=== PATIENT | male | born 1955 | race Caucasian/White ===

== ENCOUNTER 2016-06-22 08:07 | Day surgery (SDC) | payer BC ==
[~2016-06-22] VITALS: Ht 177.8 cm; Wt 79.4 kg
[~2016-06-22 08:07] MED LIST: ASPIRIN81 MG PO; BENICAR HCT 40-1 TA1 PO; BENICAR HCT 40-1 TAB PO; FINACEA PO; FLOVENT DISKU250 MCG; FLOVENT HFA 22012 GM INH; GLIPIZIDE10 MG; GLIPIZIDE10 MG PO; GLUCOPHAGE1000 MG PO; HUMALOG 30100 UNITS/; HUMALOG 30100 UNITS/ SC; LEVEMIR100 U/M1; LEVEMIR100 U/M1 SC; NORVASC10 MG PO; PLAVIX75 MG PO; PREVACID30 MG PO; RYTHMOL225 MG PO; TOPROL XL50 MG PO; ZOCOR20 MG PO
[2016-06-22 09:40] LABS: HEMATOCRIT 42.6 % (42.0-54.0); HEMOGLOBIN 14.7 g/dL (13.5-17.5); MCH 30.8 pg (26.0-34.0); MCHC 34.5 g/dL (31.0-37.0); MCV 89.1 fL (80.0-100.0); MEAN PLATELET VOLUME 11.4 fL (7.4-10.4); RBC 4.78 10x6/uL (4.20-6.10); RDW 12.4 % (11.5-14.5); WBC 7.2 10x3/uL (4.8-10.8)
[2016-06-22 10:09] LABS: CALCIUM 9.6 mg/dL (8.5-10.1); CARBON DIOXIDE 29.8 mmol/L (21.0-32.0); CREATININE - SERUM 1.3 mg/dL (0.6-1.3); POTASSIUM - SERUM 3.8 mmol/L (3.5-5.1)
[2016-06-22 10:47] VITALS: BP 144/73; Ht 177.8 cm; Wt 79.4 kg
--- NOTE | 2016-06-22 14:23 | NUR ---
1400-IV DISCONTINUED, CATHETER INTACT, COTTON BALL AND BANDAID APPLIED. DISCHARGE INSTRUCTIONS GIVEN, PT. ESCORTED VIA WHEELCHAIR TO PERSONAL CAR, LEFT WITH DRIVING.
--- NOTE | 2016-06-26 10:18 | OP ---
PATIENT NAME: ADRIAN OLIVAREZ MEDICAL RECORD: [id number] :57 LOCATION:[facility] ADMISSION DATE: SURGEON: NATASHA GUEVARA MD DATE OF OPERATION: 06/22/2016 PREOPERATIVE DIAGNOSES: Right eustachian tube dysfunction and right nasopharyngeal mass. POSTOPERATIVE DIAGNOSES: Right eustachian tube dysfunction and right nasopharyngeal mass. PROCEDURE: Right myringotomy and tube. Direct laryngoscopy and biopsy of the nasopharynx. SURGEON: Natasha Guevara MD ANESTHESIA: General orotracheal. BLOOD LOSS: Less than 1 cc. SPECIMENS: Multiple biopsies the right nasopharynx. TUBES: Ball tube on the right ear. COMPLICATIONS: None. DISPOSITION: Recovery stable. FINDINGS: A partially cystic appearing mass superior portion of the right nasopharynx encroaching into the fossa of Rosenmuller on the right side, high on the posterior wall of the nasopharynx. It looked like a lobulated cystic slightly purplish mass, possible like lymphoid malformation. DESCRIPTION OF PROCEDURE: He was brought to the operating room and placed in supine position, sedated and intubated by anesthesia. The right ear was examined under the microscope. Cerumen was cleaned with a curet. Canal was normal. TM was dull. A radial anterior inferior myringotomy was made. Serous fluid was suctioned and a Ball tube was placed followed by Ciprodex drops and a cotton ball. There was no bleeding. The table was turned 90 degrees. A head drape was applied and he was positioned for laryngoscopy. I inserted a laryngoscope was used to examine the hypopharynx, tonsils, the palate, pyriforms, the larynx, postcricoid area, posterior pharyngeal wall. There were no abnormalities. Amy-Kike mouth gag was then inserted and elevated on a towel on his chest. The palate was palpated. It was normal as were the tonsils. Red rubber catheter was placed through the right side of the nose into the pharynx and grasped with tonsil clamp to retract the soft palate. Using a mirror, the nasopharynx was examined. A good view of the nasopharynx. The choanae and eustachian tube orifices were normal bilaterally, but the fossa of Rosenmuller was effaced on that right side with this cystic purplish mass pressing up against it superiorly. Using a 4-mm straight biting cup forceps, it was inserted through the right nostril into the nasopharynx and visualization with the mirror. Multiple biopsies were taken with a 4 mm cup forceps and all 5 biopsy specimens were taken, removing basically all of the tissue that appeared abnormal and right upper superior quadrant of the nasopharynx, all of that adenoid tissue was removed. There were no other additional masses were seen. OPERATIVE REPORT [id number] ADRIAN OLIVAREZ The rest of everything looked completely clean and normal. Bleeding was stopped with suction cautery. The Amy-Kike mouth gag was inserted mouth gag was let down and removed. He was awakened, extubated, and transported to recovery in good condition. No complications. TRANSINT:[id number] Voice Confirmation ID: [id number] DOCUMENT ID: [id number] NATASHA GUEVARA MD at 1018 CC: [id number] DICTATION DATE: 06/22/16 1245 FORM BUILDER HELPER: 06/22/16 1415 [facility] 06/22/16 [id number] [place] [address]
--- NOTE | 2016-06-26 10:18 | HP ---
PATIENT: ADRIAN OLIVAREZ MEDICAL RECORD: [id number] ACCOUNT: [id number] LOCATION:[facility] : 57 ADMISSION DATE: 06/22/16 HISTORY AND PHYSICAL EXAMINATION Preoperative history and physical HISTORY OF PRESENT ILLNESS: Mr. Olivarez is a 61-year-old male with eustachian tube dysfunction, found to have a right-sided nasopharyngeal mass. He is being admitted for laryngoscopy and biopsy of that mass. PAST MEDICAL HISTORY: Includes diabetes, hypertension and coronary artery disease. PAST SURGICAL HISTORY: Includes stents in 2008, 2012 and 2013. CURRENT MEDICATIONS: Include amlodipine and aspirin. ALLERGIES: Insulin, Benicar, Plavix, glipizide, Prevacid, metformin, metoprolol, Rythmol, and simvastatin. PHYSICAL EXAMINATION: GENERAL: Healthy-appearing male. FACE: Normal and symmetric. No lesions. EYES: Sclerae and conjunctivae are normal. EARS: Left ear is normal. The right ear has a serous effusion. NOSE: No mass, polyps or drainage. ORAL CAVITY AND OROPHARYNX: Palate elevates symmetrically. No lesions. No trismus. Tongue protrudes midline. NECK: No masses and no adenopathy. CHEST: Clear. CARDIOVASCULAR: Regular rate and rhythm. No murmur. Nasopharyngoscopy reveals a right-sided posterior nasal pharyngeal mass, it looks somewhat like it is a multiple cysts, possibly high in the right nasopharynx with effacement of the right torus and Fossa Rosenmuller. IMPRESSION: Eustachian tube dysfunction and nasopharyngeal mass. PLAN: Laryngoscopy biopsy of the nasopharynx and the right myringotomy and tubes. TRANSINT:[id number] Voice Confirmation ID: [id number] DOCUMENT ID: [id number] NATASHA GILLETTE MD at 1018 CC: [id number] DICTATION DATE: 06/19/16 1010 SENIOR RADIATION PROTECTION TECHNICIAN: 06/19/16 1044 [facility] 06/22/[address] [address]
== END 2016-06-22 14:00 | disposition home or self-care (01) ==
LOC: D.OPS 08:07 → D.PAN 08:55 → D.OPS 08:55 → D.PAN 09:00 → D.OPS 09:45
PROVIDERS: Anesthesiology
DX: H69.81 Other specified disorders of Eustachian tube, right ear (principal); R22.9 Localized swelling, mass and lump, unspecified; E11.9 Type 2 diabetes mellitus without complications; I10 Essential (primary) hypertension; I25.10 Atherosclerotic heart disease of native coronary artery without angina pectoris; Z79.82 Long term (current) use of aspirin; Z79.899 Other long term (current) drug therapy; Z88.8 Allergy status to other drugs, medicaments and biological substances

== ENCOUNTER 2016-08-31 07:33 | Outpatient (CLI) | payer BC ==
[~2016-08-31] VITALS: Ht 177.8 cm; Wt 84.1 kg
--- NOTE | ~2016-08-31 | HEMODYNAMI ---
PATIENT:ADRIAN OLIVAREZ MEDICAL RECORD: [id number] : 57 LOCATION:[facility] ADMISSION DATE: 08/31/16 Generatedon:08/31/201610:02 Patient name: ADRIAN OLIVAREZ Patient #: [id number] SSN: [id number] : 1955 Date of study: 08/31/2016 Page: Of Hemodynamic Procedure Report Patient Data Patient Demographics Procedure consent was obtained First Name: ADRIAN Gender: Male Last Name: SHER : 1955 [facility] Initial: YAEL Age: 61 year(s) Patient #: [id number] Race: SSN: [id number] Additional ID: [id number] Contact details Address: [address] [place] [address] [place] State: [place] City: [facility] [place] Zip code: [address] Past Medical History Allergies Allergen Reaction Date Comments Reported Other allergy 08/31/2016 LENNY inhibitors, Doxycyclines, Avandia Admission Admission Data Admission Date: 08/31/2016 Admission Time: 7:33 Arrival Date: 08/31/2016 Arrival Time: 9:30 Admit Source: Other Insurance Payor: Private health insurance Weight (lbs.): 185.19 Weight (kg.): 84 Lab Results Lab Result Date: 08/31/2016 Lab Result Time: 0:00 Biochemistry Name Units Result Min Max BUN mg/dl 15 --(--*-)-- 7 18 Creatinine mg/dl 1.1 --(--*-)-- 0.6 1.3 CBC Name Units Result Min Max Hemoglobin g/dl 14.3 --(*---)-- 13.5 17.5 Procedure Procedure Types Cath Procedure Diagnostic Procedure [facility] w/Coronaries PCI Procedure Coronary Stent Initial Miscellaneous Procedures Moderate Sedation up to 30 minutes Procedure Description Procedure Date Procedure Date: 08/31/2016 Procedure Start Time: 9:44 Procedure End Time: 9:58 Procedure Staff Name Function Sourav Abreu MD Performing Physician Marian Malave RT Scrub Juancho Mitchell RN Nurse Marisa Shaw RT Monitor Indication Angina Procedure Data Cath Procedure Fluoroscopy Diagnostic fluoroscopy Total fluoroscopy Time: 2 time: 2 min min Diagnostic fluoroscopy Total fluoroscopy dose: dose: 162.89 mGy 162.89 mGy Contrast Material Contrast Material Type Amount (ml) Isovue 370 76 Entry Location Entry Primary Successful Side Size Upsize Upsize Entry Closure Succes sful Closure Location (Fr) 1 (Fr) 2 (Fr) Remarks Device Remarks Femoral Right 5 Fr 6 Fr Exoseal artery Short Estimated blood loss: 5 ml Diagnostic catheters Device Type Used For End Catheter Placement Cordis 5Fr Pigtail LV Angiography Catheter (MP) Cordis 5Fr JL 4.0 Left Coronary Catheter (MP) Angiography Cordis 5Fr 3DRC Catheter Right Coronary (MP) Angiography Procedure Complications No complications Procedure Medications Medication Administration Route Dosage Oxygen NC 2 l/min Lidocaine 2% added to field 20 Heparin Flush Bag added to field 2 bags (1000units/500ml NS) 0.9% NaCl I.V. 100 ml/hr Benadryl I.V. 50 mg Versed I.V. 1 mg Fentanyl I.V. 50 mcg Versed I.V. 1 mg Fentanyl I.V. 50 mcg Versed I.V. 1 mg Fentanyl I.V. 50 mcg Versed I.V. 1 mg Fentanyl I.V. 50 mcg Heparin Bolus I.V. 4000 units Hemodynamics Rest HGB: 14.3 (g/dl) Heart Rate: 60 (bpm) Snapshots Pre Cath Intra NCS Post Cath Vital Signs Time Heart Resp SPO2 NIBP (mmHg) Rhythm Pain Sedation Rate (ipm) (%) Status Level (bpm) 9:18:19 59 21 98 158/94(114) NSR 0 (11) 10(A) , No pain 9:22:33 56 17 100 151/89(107) NSR 0 (11) 10(A) , No pain 9:26:52 59 17 100 157/88(113) NSR 0 (11) 10(A) , No pain 9:31:14 59 19 98 165/85(111) NSR 0 (11) 10(A) , No pain 9:35:30 54 18 97 134/80(110) NSR 0 (11) 10(A) , No pain 9:39:42 52 16 96 143/89(110) NSR 0 (11) 10(A) , No pain 9:44:37 51 14 96 130/80(112) NSR 0 (11) 9(A) , No pain 9:48:41 50 15 95 125/81(99) NSR 0 (11) 9(A) , No pain 9:52:52 50 15 96 124/78(94) NSR 0 (11) 9(A) , No pain 9:57:04 59 16 99 119/76(92) NSR 0 (11) 10(A) , No pain Medications Time Medication Route Dose Verified Delivered Reason Notes Effectiveness by by 9:25:11 Oxygen NC 2 Sourav Buffie used for l/min Lois Mitchell RN procedure 9:25:18 Lidocaine 2% added 20ml Sourav Buffie used for to vial Lois Mitchell RN procedure field 9:25:24 Heparin Flush added 2 Sourav Buffie used for Bag to bags Lois Mitchell RN procedure (1000units/500ml field NS) 9:25:42 0.9% NaCl I.V. 100 Sourav Buffie Per physician ml/hr Lois Mitchell RN 9:25:56 Benadryl I.V. 50 mg Sourav Buffie used for Lois Mitchell RN procedure 9:30:19 Versed I.V. 1 mg Sourav Buffie for sedation Lois Mitchell RN 9:30:25 Fentanyl I.V. 50 Sourav Buffie for sedation mcg Lois Mitchell RN 9:35:00 Versed I.V. 1 mg Sourav Buffie for sedation Lois Mitchell RN 9:35:05 Fentanyl I.V. 50 Sourav Buffie for sedation mcg Lois Mitchell RN 9:38:30 Versed I.V. 1 mg Sourav Buffie for sedation Lois Mitchell RN 9:38:34 Fentanyl I.V. 50 Sourav Buffie for sedation mcg Lois Mitchell RN 9:45:59 Versed I.V. 1 mg Sourav Buffie for sedation Lois Mitchell RN 9:46:03 Fentanyl I.V. 50 Sourav Buffie for sedation mcg Lois Mitchell RN 9:50:36 Heparin Bolus I.V. 4000 Sourav Buffie for verifie d units Tauth MD Mitchell RN anticoagulation with dr abreu Procedure Log Time Note 8:37:47 Informed consent obtained and on chart 8:37:55 Admit Source: Other 8:38:01 Arrival Date: 08/31/2016 9:30:00 AM 8:38:21 Insurance Payor : Private health insurance 8:38:34 Diagnostic Cath Status : Elective 8:39:16 Indication : Angina 8:39:23 Juancho Mitchell RN sent for patient. Start room use. 8:39:24 Time tracking: Regular hours 8:39:28 Plan of Care:Hemodynamics will remain stable., Cardiac rhythm will remain stable., Comfort level will be maintained., Respiratory function will remain adequate., Patient/ family verbilizes understanding of procedure., Procedure tolerated without complication., Recovers from procedure without complications.. 8:45:19 Lab Result : BUN 15 mg/dl 8:45:19 Lab Result : Hemoglobin 14.3 g/dl 8:45:19 Lab Result : Creatinine 1.1 mg/dl 9:11:59 Patient received from Pre/Post Procedure Room to CCL 3 Alert and oriented. Tansferred to table in Supine position. 9:12:00 Warm blankets applied, and patricia hugger turned on for patient comfort. 9:12:00 Correct patient and procedure confirmed by team. 9:12:01 ECG and BP/O2 sat monitors applied to patient. 9:17:14 Vital chart was started 9:17:17 Baseline sample Acquired. 9:17:27 Rhythm: sinus rhythm 9:17:33 Full Disclosure recording started 9:18:50 H&P Date Dictated: 08/31/2016 Within 30 days and on chart., H&P Addendum completed by physician on day of procedure. (MUST COMPLETE FOR ALL OUTPATIENTS). 9:18:52 Pre-procedure instructions explained to patient. 9:18:54 Family in waiting room. 9:18:56 Patient NPO since Midnight. 9:19:31 Patient allergic to Other allergyACE inhibitors, Doxycyclines, Avandia 9:19:36 Is the patient allergic to Iodine/contrast media? No. 9:19:48 Is patient on blood thinner?Yes 9:19:50 Snore? Yes 9:19:51 Sleep apnea? Yes 9:19:58 Patient diabetic? Yes. 9:20:03 If diabetic: On Metformin? Yes 9:20:09 If on Metformin: Last Dose? 08/28/2016 9:20:40 Opens mouth fully? Yes 9:20:41 Sticks out tongue? Yes 9:20:46 Dentures? No ? 9:20:58 IV patent on arrival in left forearm with 0.9% NaCl at [facility]. 9:21:03 Lab results completed and on chart. 9:21:07 Right groin area was prepped with chlora-prep and draped in sterile fashion 9:21:13 Alarms reviewed by R. N. 9:21:14 Sharps counted by scrub and verified by R.N. 9:21:15 Physician paged 9:25:11 Oxygen 2 l/min NC was administered by Juancho Mitchell RN; used for procedure; 9:25:18 Lidocaine 2% 20ml vial added to field was administered by Juancho Mitchell RN; used for procedure; 9:25:24 Heparin Flush Bag (1000units/500ml NS) 2 bags added to field was administered by Juancho Mitchell RN; used for procedure; 9:25:42 0.9% NaCl 100 ml/hr I.V. was administered by Juancho Mitchell RN; Per physician; 9:25:56 Benadryl 50 mg I.V. was administered by Juancho Mitchell RN; used for procedure; 9:29:30 Physician arrived 9::31 --------ALL STOP TIME OUT------ 9:29:31 Final Timeout: patient, procedure, and site verified with staff and physician. All members of the team are in agreement. 9:29:33 Right groin site verified by team. 9:29:36 Physical assessment completed. ASA score P 2 - A patient with mild systemic disease as per Sourav Abreu MD. 9:29:41 Sedation plan: IV Moderate Sedation Versed, Fentanyl 9:30:19 Versed 1 mg I.V. was administered by Juancho Mitchell RN; for sedation; 9:30:25 Fentanyl 50 mcg I.V. was administered by Juancho Mitchell RN; for sedation; 9:30:51 Use device set Femoral Dx 9:30:52 Acist Syringe opened to sterile field. 9:30:53 Bag Decanter opened to sterile field. 9:30:53 Medline Cath Pack opened to sterile field. 9:30:53 Terumo 5Fr Ellington Sheath opened to sterile field. 9:30:54 St Tha 260cm J .035 wire opened to sterile field. 9:30:55 Acist Hand Control opened to sterile field. 9:30:56 Acist Manifold opened to sterile field. 9:30:56 Diagnostic Infinity 5Fr Multipack catheter opened to sterile field. 9:30:57 Tegaderm 4 x 4 opened to sterile field. 9:34:53 Zero performed for pressure channel P1 9:35:00 Versed 1 mg I.V. was administered by Juancho Mitchell RN; for sedation; 9:35:05 Fentanyl 50 mcg I.V. was administered by Juancho Mitchell RN; for sedation; 9:38:30 Versed 1 mg I.V. was administered by Juancho Mitchell RN; for sedation; 9:38:34 Fentanyl 50 mcg I.V. was administered by Juancho Mitchell RN; for sedation; 9:44:47 Procedure started. 9:44:51 Local anesthetic to right femoral artery with Lidocaine 2% by Sourav Abreu MD.INITIAL ACCESS ONLY 9:45:00 A 5 Fr sheath was inserted into the Right Femoral artery 9:45:34 A Cordis 5Fr Pigtail Catheter (MP) was advanced over the wire and used for LV Angiography. 9:45:59 Versed 1 mg I.V. was administered by Juancho Mitchell RN; for sedation; 9:46:03 Fentanyl 50 mcg I.V. was administered by Juancho Mitchell RN; for sedation; 9:46:09 LV hemodynamics recorded. 9:46:10 LV gram done using LYLES 9:46:14 EF : 50 % 9:46:27 Catheter removed. 9:46:31 A Cordis 5Fr JL 4.0 Catheter (MP) was advanced over the wire and used for Left Coronary Angiography. 9:47:06 LCA angiography performed. 9:47:09 Injector settings: Ml/sec: 3, Volume: 6, 9:48:03 Catheter removed. 9:48:14 A Cordis 5Fr 3DRC Catheter (MP) was advanced over the wire and used for Right Coronary Angiography. 9:48:45 RCA angiography performed. 9:48:48 Injector settings: Ml/sec: 3, Volume: 6, 9:49:05 Catheter removed. 9:49:06 Proceeding to intervention. 9:50:06 Terumo 6Fr Ellington Sheath opened to sterile field. 9:50:07 Merit BasixCompak Inflation Kit opened to sterile field. 9:50:07 Levy Whisper J 300cm 0.014 guide wire opened to sterile field. 9:50:36 Heparin Bolus 4000 units I.V. was administered by Juancho Mitchell RN; for anticoagulation; verified with dr abreu 9:53:19 Medtronic Launcher 6Fr 3DRC guide catheter opened to sterile field. 9:53:27 Sheath upsized to a 6 Fr Short. 9:53:34 6 Fr 3drc guide catheter was inserted over the wire 9:53:38 whisper wire advanced. 9:53:40 Wire advanced across lesion. 9:55:09 Inflation Number: 1 A Medtronic Integrity 3.0 X 18 stent was prepped and advanced across the Prox RCA. The stent was deployed at 13 ARABELLA for 0:10 (min:sec). 9:55:13 Stent catheter was removed intact over wire. 9:55:14 Wire removed. 9:55:14 Guide catheter removed. 9:55:23 Cordis 6Fr Exoseal opened to sterile field. 9:55:35 Sheath removed intact; hemostasis achieved with Exoseal to the Right Femoral artery. 9:55:36 Procedure ended.(Physican Out) 9:57:37 Fluoroscopy time 02.00 minutes. 9:57:42 Fluoroscopy dose: 162.89 mGy 9:57:42 Flurop Dose total: 162.89 9:57:48 Contrast amount:Isovue 370 76ml. 9:57:50 Sharps counted by scrub and verified by R.N. 9:57:53 Insertion/operative site no bleeding no hematoma. 9:57:56 Post-op/insertion site Right Femoral artery dressed using a 4 x 4 and Tegaderm. 9:57:59 Post right femoral artery:stable 9:58:00 Post Procedure Pulses reassessed and unchanged 9:58:03 Post procedure rhythm: unchanged. 9:58:05 Estimated blood loss: 5 ml 9:58:08 Post procedure instruction explained to patient.Patient verbalizes understanding. 9:58:11 Patient needs reinforcement of post procedure teaching. 9:58:27 Procedure type changed to Cath procedure, Diagnostic procedure, LHC, LHC w/Coronaries, PCI procedure, Coronary Stent Initial, Miscellaneous Procedures, Moderate Sedation up to 30 minutes 9:58:28 Procedure and supply charges have been captured, reviewed, submitted and are correct. 9:58:33 Procedure Complication : No complications 9:58:35 Vital chart was stopped 9:58:36 See physician's report for complete and final results. 9:58:40 Report given to Pre/Post Procedure Room. 9:58:43 Patient transfered to Pre/Post Procedure Room with Stretcher. 9:58:46 Procedure ended. 9:58:46 Full Disclosure recording stopped 9:59:03 ACC-PCI Only Patient was given prescriptions, or instructed by Sourav Abreu MD to start/continue the following medications upon discharge: Plavix 9:59:15 End room use (Document Last) 10:02:00 Patient Weight : 84 kg Intervention Summary Intervention Notes Time ActionType Lesion and Equipment Action# Pressure Duration Attributes Used 9:55:[address] stent Prox RCA Medtronic 1 13 00:10 Integrity 3.0 X 18 stent Device Usage Item Name Manufacture Quantity Catalog Hospital Part Current Minimal L ot# / Number Charge Number Stock Stock Serial# Code Acist Acist 1 30648 714192 800059 343932 20 Syringe Medical Systems Inc Bag Microtek 1 2002S 540355 67879 018564 5 Decanter Medical Inc. Medline Cardinal 1 [id number] 821902 64258 847518 5 Cath Pack Health Terumo 5Fr Terumo 1 [id number] 254206 131840 563235 [address] Th[address] Tha 1 700975 242728 160853 466045 30 260cm J .035 wire Acist Hand Acist 1 25930 978781 555640 520235 5 Control Medical Systems Inc Acist Acist 1 75050 881241 202258 936162 5 Manifold Medical Systems Inc Diagnostic Cardinal 1 UL1991 818663 64111 853705 30 Infinity Health 5Fr Multipack catheter Tegaderm 4 3M 1 1626W 011755 194502 795282 5 x 4 Cordis 5Fr Cardinal 1 383607 5 Pigtail Health Catheter (MP) Cordis 5Fr Cardinal 1 376969 5 JL 4.0 Health Catheter (MP) Cordis 5Fr Cardinal 1 864469 5 3DRC Health Catheter (MP) Terumo 6Fr Terumo 1 [id number] 807708 496434 144538 40 Ellington Sheath Merit Merit 1 NW4697 848023 745679 105412 15 BasixCompak Medical Inflation Kit Levy Levy 1 [id number] 655559 083003 310102 5 Whisper J Vascular 300cm 0.014 guide wire Medtronic Medtronic 1 [id number] 325065 685180 268320 1 Launcher 6Fr 3DRC guide catheter Medtronic Medtronic 1 [id number] 795268 824430 138753 1 0 [id number] Integrity 3.0 X 18 stent Cordis 6Fr Cardinal 1 [id number] 457553 901303 015938 10 AdhereTech Signature Audit [place] Stage Time Signature Unsigned Intra-Procedure 08/31/2016 Marisa Shaw 10:02:22 AM RT(R) Signatures Monitor : Marisa Shaw RT Signature : Date : Time : [id number] [place] [address]
[2016-08-31 08:09] VITALS: BP 130/65; Ht 177.8 cm; Wt 84.1 kg
[2016-08-31 08:28] LABS: BASOPHILS 0.2 % (0.0-2.0); EOSINOPHILS 4.1 % (0-7); HEMATOCRIT 40.5 % (42.0-54.0); HEMOGLOBIN 14.3 g/dL (13.5-17.5); IMMATURE GRANULOCYTES 0.2 % (0-5); LYMPHOCYTES 19.8 % (15-50); MCH 31.3 pg (26.0-34.0); MCHC 35.3 g/dL (31.0-37.0); MCV 88.6 fL (80.0-100.0); MEAN PLATELET VOLUME 11.6 fL (7.4-10.4); MONOCYTES 13.1 % (2-11); NEUTROPHILS 62.6 % (40-80); PLATELET COUNT 211 10x3/uL (130-400); RBC 4.57 10x6/uL (4.20-6.10); RDW 12.2 % (11.5-14.5); WBC 5.8 10x3/uL (4.8-10.8)
[2016-08-31 08:41] LABS: ANION GAP 12.8 mmol/L (8-16); CALCIUM 9.2 mg/dL (8.5-10.1); CARBON DIOXIDE 27.2 mmol/L (21.0-32.0); CREATININE - SERUM 1.1 mg/dL (0.6-1.3)
--- NOTE | 2016-08-31 10:58 | NUR ---
1030 LYING FLAT, AWAKE AND TALKING TO AT BEDSIDE. ROOM AIR WITH NO DISTRESS, SINUS MICHAEL RATE 50 W NO C/O CHEST PAIN. PULSES PALP X 4. R GROIN 6F EXOSEAL C/D/I WITH NO HEMATOMA OR BLEEDING.
--- NOTE | 2016-08-31 11:04 | NUR ---
VOIDED 200 CC URINE VIA URINAL, SIPPING WATER W NO NAUSEA.
--- NOTE | 2016-08-31 11:28 | NUR ---
PATIENT BROUGHT HOME CPAP FOR SLEEP APNEA. APPLIED WHILE SLEEPING. R GROIN REMAINS C/D/I WIT NO HEMATOMA OR BLEEDING.
--- NOTE | 2016-08-31 13:51 | NUR ---
1230 RESTING WITH EYES CLOSED, CPAP IN PLACE. ALL VITALS WNL. R GROIN REMAINS C/D/I WITH NO HEMATOMA OR BLEEDING. 1345 PIV REMOVED FROM LEFT HAND WITH BANDAID APPLIED. SITTING UP TO BEDSIDE, DRESSING WITH ASSIST FROM . AMBULATED TO BATHROOM TO VOID. R GROIN REMAINS C/D/I WITH NOHEMATOMA OR BLEEDING AFTER AMBULATING.
--- NOTE | 2016-08-31 14:09 | NUR ---
D/C INSTRUCTIONS DISCUSSED WITH PATIENT AND AT BEDSIDE. WHEELED OUT VIA WHEELCHAIR BY CATH TEAM.
--- NOTE | 2016-09-01 14:38 | HP ---
PATIENT: ADRIAN OLIVAREZ MEDICAL RECORD: [id number] ACCOUNT: [id number] LOCATION:[facility] : 57 ADMISSION DATE: 08/31/16 HISTORY AND PHYSICAL EXAMINATION DATE OF HISTORY AND PHYSICAL: 08/31/2016 DIAGNOSES: 1. Angina. 2. Coronary artery disease. 3. Abnormal nuclear stress test, perfusion defects inferiorly and laterally. 4. Hypertension. 5. Hyperlipidemia. 6. Paroxysmal atrial fibrillation. HISTORY OF PRESENT ILLNESS: Mr. Olivarez has been having increasing episodes of chest pain, chest discomfort compatible with angina despite maximal medical therapy. His stress test was abnormal with inferior and lateral perfusion defects. He is now brought for cardiac catheterization. PHYSICAL EXAMINATION: GENERAL APPEARANCE: Well-nourished, well-developed, appears stated age. Level of distress, comfortable. PSYCHIATRIC: Mental status, alert, normal affect. Orientation, oriented to time, place and person. EYES: Lids and conjunctiva, noninjected. No discharge, no pallor. ENT: Lips, teeth, gums, normal dentition. Oropharynx, no cyanosis, no pallor. NECK: Carotid arteries, bilateral normal upstroke, no bruits, no thrills. JUGULAR VEINS: No jugular venous pressure or distention. CERVICAL LYMPH NODES: Nontender, nonenlarged. THYROID: Not enlarged. Nontender. No nodules. LUNGS: Respiratory effort, unlabored. CHEST: Normal curvature. No thoracic deformity. No chest wall tenderness. Percussion, resonant. Auscultation, clear. No wheezes, no rales, no rhonchi. CARDIOVASCULAR: Precordial exam, nondisplaced. No heaves or pericardial thrills. Rate and rhythm, regular. Heart sounds, normal S1, normal S2. No S3, no gallop, no rub. Systolic murmur, not heard. Diastolic murmur, not heard. EXTREMITIES: No cyanosis, no edema. Peripheral pulses, full and equal in all extremities, except as noted. No bruits appreciated. ABDOMEN: Soft, nondistended. Normal aorta. No bruit. Nontender. No masses. Liver, nontender, no hepatomegaly. Spleen, nontender, no splenomegaly. MUSCULOSKELETAL: No joint tenderness. No joint swelling. No erythema. NEUROLOGICAL: Normal gait, normal strength, normal tone. SKIN: Warm and dry. REVIEW OF SYSTEMS: The patient reports easy bruising but reports no swollen glands. The patient reports no fever, no night sweats, no significant weight gain, no significant weight loss. No significant exercise tolerance. The patient reports no dry eyes, no irritation, no vision change. Patient reports no difficulty hearing and no ear pain. Patient reports no frequent nose bleeds or nose and sinus problems. Patient reports on arm pain on exertion. No shortness of breath while lying down. No history of heart murmur. Patient reports no cough, no wheezing or coughing up blood. Patient reports no abdominal pain, no vomiting. Normal appetite. No diarrhea and not vomiting blood. No nausea and no constipation. Patient reports no incontinence. No HISTORY AND PHYSICAL [id number] ADRIAN OLIVAREZ difficulty urinating. No hematuria. No increased frequency. Patient reports no muscle aches. No weakness, no arthralgias, no back pain. No swelling of the extremities. Patient reports no abnormal mole, no jaundice, no rashes. Reports no loss of consciousness. No weakness and no numbness. No seizures, dizziness, or headaches. The patient reports no depression, no sleep disturbance, feeling safe in a relationship and no alcohol abuse. Patient reports on fatigue. Reports no runny nose or sinus pressure. No itching, no hives, and no frequent sneezing. OVERALL IMPRESSION: Anginal symptomatology with abnormal nuclear stress test, multiple risk factors, most likely, he has hemodynamically significant coronary artery disease. We will proceed with coronary angiography. Further care depends upon findings of the angiography. TRANSINT:[id number] Voice Confirmation ID: [id number] DOCUMENT ID: [id number] GLORIA ERVIN MD at 1438 CC: [id number] DICTATION DATE: 08/31/16 0936 SQL SSIS DEVELOPER: 08/31/16 0953 DEP CLI 08/31/16 [id number] [place] [address]
--- NOTE | 2016-09-01 14:38 | OP ---
PATIENT NAME: ADRIAN OLIVAREZ MEDICAL RECORD: [id number] :57 LOCATION:D.CAT ADMISSION DATE: SURGEON: GLORIA ERVIN MD DATE OF OPERATION: 08/31/2016 PROCEDURES: 1. PTCA stent, RCA. 2. Left heart catheterization. 3. Selective coronary angiography. 4. Left ventriculogram. INDICATION: Angina and coronary artery disease. DESCRIPTION OF THE PROCEDURE: After informed consent was obtained and after detailed explanation of risks, benefits as well as alternative therapies, the patient elected to proceed with angiogram and angioplasty. The right femoral area was prepped and draped in normal sterile fashion. The right femoral artery was cannulated via modified Seldinger technique with placement of 6-Bulgarian sheath. All catheters exchanged through this sheath. FINDINGS: The left ventriculogram was performed in standard 30-degree LYLES view, reveals good cardiac wall motion throughout all segments. Overall ejection fraction 50%. SELECTIVE CORONARY ANGIOGRAPHY: 1. Left main showed no significant angiographic disease. 2. Left anterior descending has mild irregularities, no flow-limiting stenosis. Previously placed stents are widely patent. 3. The left circumflex ____ irregularities, but no flow-limiting stenosis. 4. Right coronary artery does have a previously placed stent. This is widely patent; however, proximal to this, there is at least 70% hazy stenosis throughout. PERCUTANEOUS TRANSLUMINAL CORONARY ANGIOPLASTY STENT OF THE RIGHT CORONARY ARTERY: Stent used 3.0 x 18 mm Integrity. Result was 0% residual stenosis. OVERALL IMPRESSION: Successful percutaneous transluminal coronary angioplasty stent of the right coronary artery going from at least 70% initial stenosis to 0% residual. TRANSINT:[id number] Voice Confirmation ID: [id number] DOCUMENT ID: [id number] GLORIA ERVIN MD at 1438 CC: [id number] DICTATION DATE: 08/31/16 0958 RETANNED LEATHER ROLLER: 08/31/16 1152 DEP CLI 08/31/[address] [address]
== END 2016-08-31 14:10 | disposition home or self-care (01) ==
LOC: D.CATH 07:33
PROVIDERS: Internal Medicine Interventional Cardiology
DX: I25.119 Atherosclerotic heart disease of native coronary artery with unspecified angina pectoris (principal); R94.30 Abnormal result of cardiovascular function study, unspecified; I10 Essential (primary) hypertension; E78.5 Hyperlipidemia, unspecified; I48.0 Paroxysmal atrial fibrillation

== ENCOUNTER 2018-07-01 17:48 | Inpatient (IN) | payer BC ==
[~2018-07-01] VITALS: Ht 177.8 cm; Wt 83.6 kg
--- NOTE | ~2018-07-01 | HEMODYNAMI ---
PATIENT:ADRIAN OLIVAREZ MEDICAL RECORD: [id number] : 57 LOCATION[facility] [id number] ADMISSION DATE: 07/02/18 Generatedon:07/04/201810:26 Patient name: ADRIAN OLIVAREZ Patient #: [id number] SSN: [id number] : 1955 Date of study: 07/04/2018 Page: Of Hemodynamic Procedure Report Patient Data Patient Demographics Procedure consent was obtained First Name: ADRIAN Gender: Male Last Name: SHER : 1955 [facility] Initial: YAEL Age: 63 year(s) Patient #: [id number] Race: SSN: [id number] Additional ID: [id number] Contact details Address: [address] [place] [address] circle State: [place] City: [facility] Zip code: [address] Past Medical History Allergies Allergen Reaction Date Comments Reported Other allergy 08/31/2016 LENNY inhibitors, Doxycyclines, Avandia Other allergy 07/04/2018 LENNY Inhibitors, doxycycline, Rosiglitazone, Admission Admission Data Admission Date: 07/02/2018 Admission Time: 18:50 Room #: 2122 Lab Results Lab Result Date: 07/04/2018 Lab Result Time: 0:00 Biochemistry Name Units Result Min Max BUN mg/dl 25 --(----)-* 7 18 Creatinine mg/dl 1.4 --(----)*- 0.6 1.3 CBC Name Units Result Min Max Hemoglobin g/dl 14.2 --(*---)-- 13.5 17.5 Procedure Procedure Types Cath Procedure Diagnostic Procedure C [facility] w/Coronaries Sedation Charges Moderate Sedation up to 15 minutes PCI Procedure Coronary Stent Coronary Stent Initial Procedure Description Procedure Date Procedure Date: 07/04/2018 Procedure Start Time: 9:55 Procedure End Time: 10:23 Procedure Staff Name Function Jae Rothman MD Performing Physician Rambo Reardon RT Scrub Manasa Sal RN Nurse Pranav Koo RN Wafer Fabrication Technician [facility] RT Monitor Procedure Data Cath Procedure Fluoroscopy Diagnostic fluoroscopy Total fluoroscopy Time: 4.3 time: 4.3 min min Diagnostic fluoroscopy Total fluoroscopy dose: dose: 1113 mGy 1113 mGy Contrast Material Contrast Material Type Amount (ml) Isovue 300 153 Entry Location Entry Primary Successful Side Size Upsize Upsize Entry Closure Succes sful Closure Location (Fr) 1 (Fr) 2 (Fr) Remarks Device Remarks Femoral Right 5 Fr 6 Fr Exoseal artery Short Estimated blood loss: 10 ml Diagnostic catheters Device Type Used For End Catheter Placement MULTIPACK JL 4.0 5Fr Procedure catheter MULTIPACK 3DRC 5Fr Procedure catheter MULTIPACK Pigtail 5 Fr Procedure catheter Procedure Complications No complications Procedure Medications Medication Administration Route Dosage 0.9% NaCl I.V. ml/hr Oxygen etCO2 Nasal cannula 2 l/min Lidocaine 2% added to field 20 Heparin Flush Bag added to field 2 bags (1000units/500ml NS) Versed I.V. 2 mg Fentanyl I.V. 50 mcg Versed I.V. 1 mg Fentanyl I.V. 25 mcg Nitroglycerin IC/IA I.C. 100 mcg Heparin Bolus I.V. 8000 units Versed I.V. 1 mg Plavix P.O. 600 mg Hemodynamics Rest Heart Rate: 57 (bpm) Pressure Samples Time Site Value (mmHg) Purpose Heart Use Rate(bpm) 10:02 LV 128/11,30 Snapshot 58 10:05 AO 127/61(85) Pullback 53 10:05 LV 145/4,44 Pullback 53 Gradients Valve Time Site 1 Site 2 Mean SEP/DFP Peak To Heart Use (mmHg) (sec/min) Peak Rate (mmHg) (bpm) Aortic 10:03 LV AO 56 Aortic 10:05 LV AO 16 15 18 53 145/4,44 127/61(85) Calculations Valve P-P Mean Valve Index Valve Source Name Gradient Area Flow (cm2) Aortic 18 16 18 16 Snapshots Pre Cath Intra NCS Post Cath Vital Signs Time Heart Resp SPO2 etCO2 NIBP (mmHg) Rhythm Pain Sedation Rate (ipm) (%) (mmHg) Status Level (bpm) 9:39:33 60 21 96 0 146/86(119) NSR 0 (11) 10(A) , No pain 9:43:40 61 20 97 0 146/86(111) NSR 0 (11) 10(A) , No pain 9:47:48 53 14 96 0 128/77(99) SB 0 (11) 10(A) , No pain 9:51:56 55 15 97 0 134/81(97) SB 0 (11) 10(A) , No pain 9:56:08 52 12 96 0 125/74(95) SB 0 (11) 10(A) , No pain 10:00:20 56 13 98 0 135/77(104) SB 0 (11) 9(A) , No pain 10:04:36 52 11 97 0 129/73(102) SB 0 (11) 9(A) , No pain 10:08:50 55 14 96 0 124/78(98) SB 0 (11) 9(A) , No pain 10:13:08 60 15 96 0 125/64(82) SB 0 (11) 10(A) , No pain 10:17:26 53 13 97 0 122/71(91) SB 0 (11) 9(A) , No pain 10:21:42 55 16 96 0 124/72(98) SB 0 (11) 10(A) , No pain Medications Time Medication Route Dose Verified Delivered Reason Notes Effectiveness by by 9:38:29 0.9% NaCl I.V. ml/hr Jae Manasa used for Stephan Sal general dentist/owner 9:40:02 Oxygen etCO2 2 Jae Manasa used for Nasal l/min Stephan Sal procedure cannula RN 9:40:07 Lidocaine 2% added 20ml Jae Jae for local to vial Stephan Rothman MD anesthetic field 9:40:11 Heparin Flush added 2 Jae Jae used for Bag to bags Stephan Rothman MD procedure (1000units/500ml field NS) 9:52:31 Versed I.V. 2 mg Jae Manasa for sedation Stephan Sal RN 9:52:44 Fentanyl I.V. 50 Jae Manasa for sedation mcg Stephan Sal RN 9:59:53 Versed I.V. 1 mg Jae Manasa for sedation Stephan Sal RN 9:59:57 Fentanyl I.V. 25 Jae Manasa for sedation mcg Stephan Sal RN 10:12:28 Nitroglycerin I.C. 100 Jae Jae for IC/IA mcg Stephan adkins 10:13:54 Heparin Bolus I.V. 8000 Jae Manasa for verif ied units Stephan Sal anticoagulation with Dr. JENNIFER Rothman 10:16:41 Versed I.V. 1 mg Jae Manasa for sedation Stephan Sal RN 10:22:09 Plavix P.O. 600 Jae Manasa for mg Stephan Sal antiplatelet RN therapy Procedure Log Time Note 9:15:08 Signed procedure consent form obtained from patient. 9:15:10 Diagnostic Cath status Elective 9:15:11 Time tracking: Regular hours (M-F 7:00 - 5:00) 9:15:14 Plan of Care:Hemodynamics will remain stable., Cardiac rhythm will remain stable., Comfort level will be maintained., Respiratory function will remain adequate., Patient/ family verbilizes understanding of procedure., Procedure tolerated without complication., Recovers from procedure without complications.. 9:15:27 H&P Date Dictated: 07/02/2018 Within 30 days and on chart., H&P Addendum completed by physician on day of procedure. (MUST COMPLETE FOR ALL OUTPATIENTS). 9:22:33 Pranav Koo RN sent for patient. Start room use. 9:32:58 Patient received from Med II to CCL 1 Alert and oriented. Tansferred to table in Supine position. 9:32:59 Warm blankets applied, and patricia hugger turned on for patient comfort. 9:32:59 Correct patient and procedure confirmed by team. 9:33:00 ECG and BP/O2 sat monitors applied to patient. 9:33:01 Pre-procedure instructions explained to patient. 9:33:01 Pre-op teaching completed and patient verbalized understanding. 9:33:02 Family in patients room. 9:33:03 Patient NPO since Midnight. 9:33:54 Patient allergic to Other allergyACE Inhibitors, doxycycline, Rosiglitazone, 9:38:19 Vital chart was started 9:38:29 0.9% NaCl ml/hr I.V. was administered by Manasa Sal RN; used for procedure; 9:40:02 Oxygen 2 l/min etCO2 Nasal cannula was administered by Manasa Sal RN; used for procedure; 9:40:07 Lidocaine 2% 20ml vial added to field was administered by Jae Rothman MD; for local anesthetic; 9:40:11 Heparin Flush Bag (1000units/500ml NS) 2 bags added to field was administered by Jae Rothman MD; used for procedure; 9:41:15 pt arrived to with personal CPAP and will wear during procedure. DONNA EtCO2 d/t CPAP have nasal canula 9:44:04 Is patient on blood thinner?Yes 9:44:16 PLAVIX HELD SINCE THE 9:44:20 Patient diabetic? Yes. 9:44:21 If diabetic: On Metformin? Yes 9:44:27 If on Metformin: Last Dose? 07/02/2018 9:44:32 Previous problem with sedation/anesthesia? No ? 9:44:33 Snore? Yes 9:44:33 Sleep apnea? Yes 9:44:36 Deviated septum? No 9:44:37 Opens mouth fully? Yes 9:44:38 Sticks out tongue? Yes 9:44:41 Airway obstruction? No ? 9:44:42 Dentures? Yes ? 9:44:47 Pre procedure: right dorsailis pedis pulse 1+ Palpable, but thready & weak; easily obliterated 9:44:49 Patient pain scale 0/10 ?. 9:45:24 IV patent on arrival in left antecubital with 0.9% NaCl at O. 9:45:43 Lab Result : BUN 25 mg/dl 9:45:43 Lab Result : Creatinine 1.4 mg/dl 9:45:43 Lab Result : Hemoglobin 14.2 g/dl 9:45:46 Lab results completed and on chart. 9:45:49 Right groin area was prepped with chlora-prep and draped in sterile fashion 9:45:50 Alarms reviewed by R. N. 9:45:50 Sharps counted by scrub and verified by R.N. 9:45:53 Use device set Femoral Dx 9:45:54 ACIST Syringe (83970) opened to sterile field. 9:45:54 Bag Decanter () opened to sterile field. 9:45:55 ACIST Hand Control (54386) opened to sterile field. 9:45:56 ACIST Manifold (09425) opened to sterile field. 9:45:57 Tegaderm 4 x 4 (1626W) opened to sterile field. 9:45:58 Medline Cath Pack ([id number]) opened to sterile field. 9:45:59 DIAGNOSTIC WIRE .035 260cm J wire (082770) opened to sterile field. 9:46:00 DIAGNOSTIC Multipack 5Fr catheter set (WK3779) opened to sterile field. 9:46:02 SHEATH 5FR Clifton (AXH212) opened to sterile field. 9:49:56 Zero performed for pressure channel P1 9:51:02 --------ALL STOP TIME OUT------ 9:51:02 Final Timeout: patient, procedure, and site verified with staff and physician. All members of the team are in agreement. 9:51:04 Right groin site verified by team. 9:51:07 Physical assessment completed. ASA score P 2 - A patient with mild systemic disease as per Jae Rothman MD. 9:51:11 Sedation plan: IV Moderate Sedation Medication:Versed, Fentanyl 9:51:30 Baseline sample Acquired. 9:51:34 Rhythm: sinus bradycardia 9:51:35 Full Disclosure recording started 9:52:31 Versed 2 mg I.V. was administered by Manasa Sal RN; for sedation; 9:52:44 Fentanyl 50 mcg I.V. was administered by Manasa Sal RN; for sedation; 9:55:23 Procedure started. 9:55:30 Local anesthetic to right femoral artery with Lidocaine 2% by Jae Rothman MD.INITIAL ACCESS ONLY 9:57:19 A 5 Fr sheath was inserted into the Right Femoral artery 9:57:28 A MULTIPACK JL 4.0 5Fr catheter was advanced over the wire and used for Procedure. 9:58:57 LCA angiography performed. 9:59:09 Catheter exchanged over wire. 9:59:53 Versed 1 mg I.V. was administered by Manasa Sal RN; for sedation; 9:59:55 A MULTIPACK 3DRC 5Fr catheter was advanced over the wire and used for Procedure. 9:59:57 Fentanyl 25 mcg I.V. was administered by Manasa Sal RN; for sedation; 10:00:29 RCA angiography performed. 10:00:59 Catheter exchanged over wire. 10:01:20 A MULTIPACK Pigtail 5 Fr catheter was advanced over the wire and used for Procedure. 10:02:01 LV gram done using LYLES 10:02:05 Injector settings: Ml/sec: 10, Volume: 20, 10:02:19 LV hemodynamics recorded. 10:02:33 EF : 25 % 10:04:58 Catheter exchanged over wire. 10:07:22 SHEATH 6FR Clifton (CHG978) opened to sterile field. 10:07:23 GUIDE 6FR XBLAD 3.5 catheter ([id number]) opened to sterile field. 10:07:23 INFLATOR Merit BasixCompak (XC1292) opened to sterile field. 10:07:24 BMW 300cm Straight [place] 2 wire (7061721) opened to sterile field. 10:07:24 TUBING High Pressure Extension Tubing (Stephan) ([id number]) opened to sterile field. 10:07:31 Sheath upsized to a 6 Fr Short. 10:08:52 6 Fr XBLAD 3.5 guide catheter was inserted over the wire 10:12:28 Nitroglycerin IC/IA 100 mcg I.C. was administered by Jae Rothman MD; for vasodilation; 10:13:54 Heparin Bolus 8000 units I.V. was administered by Manasa Sal RN; for anticoagulation; verified with Dr. Rothman 10:14:02 BMW 300 wire advanced. 10:14:50 Wire advanced across lesion. 10:16:41 Versed 1 mg I.V. was administered by Manasa Sal RN; for sedation; 10:18:20 Place stent Inflation Number: 1 A JUDY OTW 2.25 x 15 stent ([id number]) was prepped and advanced across the Dist LAD. The stent was deployed at 12 ARABELLA for 0:00 (min:sec). 10:18:36 Stent catheter was removed intact over wire. 10:19:21 Wire removed. 10:19:21 Guide catheter removed. 10:19:35 EXOSEAL 6Fr (EX600) opened to sterile field. 10:20:44 Sheath removed intact; hemostasis achieved with Exoseal to the Right Femoral artery. 10:20:49 Procedure ended.(Physican Out) 10:21:02 Fluoroscopy time 04.30 minutes. 10:21:07 Fluoroscopy dose: 1113 mGy 10:21:07 Flurop Dose total: 1113 10:21:11 Contrast amount:Isovue 300 153ml. 10:21:16 Post-op/insertion site Right Femoral artery dressed using a 4 x 4 and Tegaderm. 10:21:21 Post-procedure physical assessment completed. ASA score P 2 - A patient with mild systemic disease as per Jae Rothman MD. 10:21:24 Post procedure rhythm: sinus bradycardia 10:21:30 Estimated blood loss: 10 ml 10:21:32 Post procedure instruction explained to patient.Patient verbalizes understanding. 10:21:32 Patient needs reinforcement of post procedure teaching. 10:21:56 Procedure type changed to Cath procedure, Diagnostic procedure, LHC, LHC w/Coronaries, Sedation Charges, Moderate Sedation up to 15 minutes, PCI procedure, Coronary Stent, Coronary Stent Initial 10:22:09 Plavix 600 mg P.O. was administered by Manasa Sal RN; for antiplatelet therapy; 10:23:13 Procedure and supply charges have been captured, reviewed, submitted and are correct. 10:23:15 Procedure Complication : No complications 10:23:17 Vital chart was stopped 10:23:17 See physician's report for complete and final results. 10:23:19 Report given to PCU. 10:23:22 Patient transfered to PCU with Bed. 10:23:24 Procedure ended. 10:23:24 Full Disclosure recording stopped 10:23:39 End room use (Document Last) Intervention Summary Intervention Notes Time ActionType Lesion and Equipment Action# Pressure Duration Attributes Used 10:18:20 Place stent Dist LAD JUDY OTW 2.25 1 12 00:00 x 15 stent ([id number]) Device Usage Item Name Manufacture Quantity Catalog Hospital Part Current Minim al Lot# / Number Charge Number Stock Stock Serial# Code ACIST Syringe Acist 1 09858 092018 991691 922814 20 (73439) Medical Systems Inc Bag Decanter Microtek 1 2001S 821251 54958 528655 5 (2001S) Medical Inc. ACIST Hand Acist 1 45092 159518 176063 300947 5 Control Medical (64622) Systems Inc ACIST Acist 1 26200 129085 765057 546818 5 Manifold Medical (47269) Systems Inc Tegaderm 4 x 3M 1 1626W 022819 241610 866376 5 4 (1626W) Medline Cath Medline 1 [id number] 194188 62338 106115 5 Pack ([id number]) DIAGNOSTIC St Tha 1 073872 889549 712798 166731 30 WIRE .035 260cm J wire (066638) DIAGNOSTIC Cardinal 1 PG3799 996801 89722 456742 30 Multipack 5Fr Health catheter set (XF5200) SHEATH 5FR Terumo 1 RFY352 588108 649550 075408 5 Clifton (BEB113) MULTIPACK JL Cardinal 1 640119 5 4.0 5Fr Health catheter MULTIPACK Cardinal 1 289947 5 3DRC 5Fr Health catheter MULTIPACK Cardinal 1 630575 5 Pigtail 5 Fr Health catheter SHEATH 6FR Terumo 1 SAZ715 219201 049392 136194 40 Clifton (FYN048) GUIDE 6FR Cardinal 1 [id number] 218445 090063 695369 10 XBLAD 3.5 Health catheter ([id number]) INFLATOR Merit 1 US1989 215093 729516 953060 15 [facility] Medical BasixCompak (IB5272) BMW 300cm Levy 1 8840202 754907 074242 889430 5 Straight Vascular [place] 2 wire (2887114) TUBING High Merit 1 [id number] 124728 55690 206037 10 Pressure Medical Extension Tubing (Rothman) ([id number]) JUDY OTW 2.25 Medtronic 1 [id number] 818132 97951 453048 5 [id number] x 15 stent ([id number]) EXOSEAL 6Fr Cardinal 1 EX600 745053 983181 149844 10 (EX600) Health Signature Audit [place] Stage Time Signature Unsigned Intra-Procedure 07/04/2018 Mary Ellen Baer 10:26:19 AM RT(R) Signatures Monitor : Mary Ellen Baer Signature : RT Date : Time : [facility] [address] [place] [address]
[~2018-07-01 17:48] MED LIST changes: +LEVEMIR IN100 UNITS/ SC; -LEVEMIR100 U/M1 SC
[2018-07-01] MEDS ORDERED: NIFEDIPINE ER90 MG PO (17:57)
--- NOTE | 2018-07-01 19:20 | NUR ---
PT REPORT HANDED OFF FROM JENNIFER MCGEE. PT STABLE,CALLLIGHT WITHIN REACH, WILL CONTINUE TO MONITOR.
[2018-07-01 20:22] LABS: BASOPHILS 0.4 % (0-2); EOSINOPHILS 2.5 % (0-7); HEMATOCRIT 48.3 % (42.0-54.0); HEMOGLOBIN 16.9 g/dL (13.5-17.5); IMMATURE GRANULOCYTES 0.1 % (0-5); LYMPHOCYTES 20.4 % (15-50); MCV 88.6 fL (80.0-100.0); MEAN PLATELET VOLUME 12.4 fL (7.4-10.4); NEUTROPHILS 67.6 % (40-80); RBC 5.45 10x6/uL (4.20-6.10); WBC 9.3 10x3/uL (4.8-10.8)
[2018-07-01 20:22] LABS: APPEARANCE CLEAR (CLEAR); BILIRUBIN NEGATIVE (NEGATIVE); COLOR STRAW (YELLOW); GLUCOSE NEGATIVE (NEGATIVE); KETONE NEGATIVE (NEGATIVE); NITRITE NEGATIVE (NEGATIVE); PROTEIN NEGATIVE (NEGATIVE); SPECIFIC GRAVITY 1.005 (1.005-1.020); UROBILINOGEN NORMAL (NORMAL)
[2018-07-01 20:24] LABS: PLATELET COUNT 262 10x3/uL (130-400)
--- NOTE | 2018-07-01 20:30 | NUR ---
PT STABLE,CALL LIGHT WITHIN REACH, WILL CONTINUE TO MONITOR.
[2018-07-01 20:36] LABS: ALBUMIN 4.6 g/dL (3.4-5.0); ALKALINE PHOSPHATASE 74 U/L (46-116); ALT (SGPT) 58 U/L (10-68); BILIRUBIN - TOTAL 0.56 mg/dL (0.2-1.3); CALC OSMOLALITY 278 mosm/kg (275-300); CALCIUM 9.7 mg/dL (8.5-10.1); CARBON DIOXIDE 29.8 mmol/L (21.0-32.0); CHLORIDE - SERUM 97 mmol/L (98-107); CREATININE - SERUM 1.1 mg/dL (0.6-1.3); MAGNESIUM - SERUM 2.2 mg/dL (1.8-2.4); POTASSIUM - SERUM 3.7 mmol/L (3.5-5.1); PRO BNP 359 pg/mL (0-125); PROTEIN - SERUM 9.2 g/dL (6.4-8.2); SODIUM 137 mmol/L (136-145); THYROID STIMULATING HORMONE 4.36 uIU/mL (0.36-3.74); TROPONIN-I < 0.017 ng/mL (0.000-0.060); UREA NITROGEN 18 mg/dL (7-18); eGFR NON AFRICAN AMERICAN 72 mL/min (90-120)
[2018-07-01 20:37] LABS: GLUCOSE 161 mg/dL (74-106)
[2018-07-01 20:46] VITALS: BP 154/103
[2018-07-01 21:25] VITALS: BP 136/97
--- NOTE | 2018-07-01 21:50 | NUR ---
PT HAS ARRIVED TO FLOOR BY WHEELCHAIR, REPORT TAKEN FROM ZHANE PRESCOTT RN. PT ORIENTED TO ROOM. NO S/S OF DISTRESS. WILL CTM.
--- NOTE | 2018-07-01 21:59 | NUR ---
REPORT CALLED TO ROBIN NURSE. ROOM 2122. PT STABLE, AT TRANSPORT.
--- NOTE | 2018-07-01 22:12 | NUR ---
PT STATES HE HAS A SPECIAL SLIDING SCALE HE USES AT HOME, PT STATES HE USES A BASE DOSAGE OF 15 UNITS AND THEN 2 MORE UNITS FOR EACH 50 POINT INCREASE IN BLOOD SUGAR. PT STATES HE SEES A NURSE PRACTICIONER AT DR MINOR OFFICE FOR HIS BLOOD SUGAR. THE PT ALSO HAS AN EXTERNAL HEART MONITOR THAT HE STATES WAS PLACED AT DR ERVIN'S OFFICE.
[2018-07-01 22:37] VITALS: BP 148/100; Ht 177.8 cm; Wt 83.6 kg
--- NOTE | 2018-07-01 22:44 | NUR ---
SCREEN MACHINE OPERATOR ASSESSMENT COMPLETED. ST WITH BBB PER CM HR 121. VSS. IV TO LAC SL. PT DENIED ANY DISCOMFORT. UP AD LEANNE. WILL CONTINUE TO MONITOR. S RUP X2, CALL LIGHT WITHIN REACH.
[2018-07-02 00:38] VITALS: BP 101/53
--- NOTE | 2018-07-02 01:57 | NUR ---
PT LYING IN BED WITH EYES OPEN, RR EVEN AND UNLABORED. CPAP MACHINE IN PLACE ON PT. ALLERGY BAND PLACED ON PT'S RIGHT WRIST. PT DENIES FURTHER NEEDS. CALL LIGHT IN REACH. BED IN LOW POSITION. WILL CTM. .
[2018-07-02] MEDS ORDERED: NOVOLOG100 UNIT/1 SQ (03:17)
[2018-07-02] MEDS ORDERED: NOVOLOG INJ FLE SQ (03:18)
[2018-07-02 04:29] VITALS: BP 102/53
--- NOTE | 2018-07-02 07:35 | NUR ---
ALERT AND ORIENTED. TELEMERTY SHOWS SR TO ST. UP AB LEANNE. LEFT AC SL. PT TAKES HIS OWN BS. DENIES ANY NEEDS. SR UP WITH CALL LIGHT IN REACH.
--- NOTE | 2018-07-02 08:27 | NUR ---
RESTING QUIETLY NAD NOTED MONITOR SHOWS SINUS TACH RATE 114
[2018-07-02 13:43] VITALS: BP 119/65
--- NOTE | 2018-07-02 16:56 | MORECARE ---
CASE MANAGEMENT DISCHARGE SUMMARY PATIENT: ADRIAN OLIVAREZ UNIT: [id number] ADM DATE: 07/01/18 AGE: 63 : 57 SEX: M ROOM/BED: D.2122 AUTHOR: CR SIMS PHYSICIAN: REFERRING PHYSICIAN: PAUL COLÓN DO DATE OF SERVICE: 07/02/18 Discharge Plan Patient Name: ADRIAN OLIVAREZ Facility: [facility]:[place] : 1955 Planned Disposition: Anticipated Discharge Date: Discharge Date: Expected LOS: Initial Reviewer: [email or web address] Initial Review Date: 07/01/2018 Generated: 07/02/18 5:56 pm Patient Name: ADRIAN OLIVAREZ Page 40118 at 1656 All edits/amendments must be made on the electronic document DICTATION DATE: 07/02/181655 INDUSTRIAL ENGINEERING MANAGER: TRUDI 07/02/181655 RPT#: [id number] DC DATE: STATUS: ADM IN [facility] [address] [place] [address] END OF REPORT
--- NOTE | 2018-07-02 18:40 | NUR ---
LYING QUIETLY. ON A CARDIZEM DRIP. TELEMERTY SHOWS SR 58 NO NEEDS VOICED
--- NOTE | 2018-07-02 19:39 | NUR ---
EVENING ROUNDS COMPLETED. REPORT RECEIVED. PT SITTING UP IN BED WITH EYES OPEN, RR EVEN AND UNLABORED. CARDIZEM IV INFUSING THROUGH LEFT AC PIV. NO S/S OF DISTRESS NOTED. INTRODUCED SELF TO PT. PT DENIES FURTHER NEEDS. BED IN LOW POSITION. HOME CPAP AT BEDSIDE. CALL LIGHT IN REACH. WILL CTM.
[2018-07-02 20:30] VITALS: BP 120/71
--- NOTE | 2018-07-02 23:53 | NUR ---
RESTING IN BED WITH NO DISTRESS. RESPS NONLABORED. CALL LIGHT IN REACH. MONITOR AND CPOC.
[2018-07-03 00:30] VITALS: BP 102/61
--- NOTE | 2018-07-03 01:56 | NUR ---
PT LYING IN BED WITH EYES OPEN, RR EVEN AND UNLABORED. CPAP IN PLACE. LEFT AC IV INFUSING CARDIZEM INFUSING ORDERED. BED IN LOW POSITION. CALL LIGHT IN REACH. WILL CTM.
[2018-07-03 04:30] VITALS: BP 112/64
--- NOTE | 2018-07-03 05:43 | NUR ---
MORNING MEDICATIONS ADMINISTERED ORDERED. PT CURRENTLY LYING IN BED WITH EYES OPEN, CPAP IN PLACE. NO S/S OF DISTRESS NOTED. CARDIZEM INFUSING THROUGH LEFT AC PIV ORDERED. DENIES FURTHER NEEDS. CALL LIGHT IN REACH. WILL CTM.
[2018-07-03 07:11] LABS: BASOPHILS 0.5 % (0-2); EOSINOPHILS 3.5 % (0-7); HEMATOCRIT 41.4 % (42.0-54.0); HEMOGLOBIN 14.2 g/dL (13.5-17.5); IMMATURE GRANULOCYTES 0.1 % (0-5); LYMPHOCYTES 19.9 % (15-50); MCH 30.6 pg (26.0-34.0); MCHC 34.3 g/dL (31.0-37.0); MCV 89.2 fL (80.0-100.0); PLATELET COUNT 224 10x3/uL (130-400); RBC 4.64 10x6/uL (4.20-6.10); RDW 13.3 % (11.5-14.5)
[2018-07-03 07:25] VITALS: BP 109/48
--- NOTE | 2018-07-03 07:35 | NUR ---
ASSESSMENT COMPLETED. TELEMERTY SHOWS SR 66. ALERT AND ORIENTED. LEFT AC IV WITH CARDIZEM AT 5. UP AB LEANNE. NO NEEDS VOICED. CALL LIGHT IN REACH. WILL MONITOR.
[2018-07-03 07:37] LABS: ALBUMIN 3.7 g/dL (3.4-5.0); ANION GAP 14.5 mmol/L (8-16); BILIRUBIN - TOTAL 0.5 mg/dL (0.2-1.3); CALCIUM 8.4 mg/dL (8.5-10.1); CARBON DIOXIDE 28.1 mmol/L (21.0-32.0); CREATININE - SERUM 1.4 mg/dL (0.6-1.3); MAGNESIUM - SERUM 2.1 mg/dL (1.8-2.4); POTASSIUM - SERUM 3.6 mmol/L (3.5-5.1); PROTEIN - SERUM 7.4 g/dL (6.4-8.2)
--- NOTE | 2018-07-03 10:32 | NUR ---
RESTING QUIETLY NAD NOTED WILL CONTINUE TO MONITOR
--- NOTE | 2018-07-03 17:28 | NUR ---
UP ON SIDE OF BED FOR DIET. PERMITS SIGNED FOR CATH. TELEMERTY SHOWS SB 59 WILL MONITOR
--- NOTE | 2018-07-03 19:49 | NUR ---
REPORT RECEIVED. EVENING ROUNDS COMPLETED, PT SITTING UP ON SIDE OF BED WITH EYES OPEN. RR EVEN AND UNLABORED. BED IN LOW POSITION. NO S/S OF DISTRESS NOTED. INTRODUCED SELF TO PT. CARDIZEM INFUSING THROUGH LEFT AC PIV ORDERED. DENIES FURTHER NEEDS. CALL LIGHT IN REACH. WILL CTM.
[2018-07-03 20:00] VITALS: BP 110/60
--- NOTE | 2018-07-03 22:57 | NUR ---
PT STATED HE DID NOT LIKE THE LOCATION OF HIS LEFT AC PIV AND ASKED FOR IT TO BE RESITED. NEW PIV RESITED, LEFT HAND, 18 GAUGE. PT DENIES FURTHER NEEDS AT THIS TIME. CARDIZEM INFUSING ORDERED. NO S/S OF DISTRESS. CALL LIGHT IN REACH. WILL CTM.
[2018-07-04] VITALS: BP 110/48
--- NOTE | 2018-07-04 02:26 | NUR ---
PT LYING IN BED WITH EYES CLOSED, RR EVEN AND UNLABORED. CPAP IN PLACE. 48 SINUS MICHAEL ON TELEMETRY. BED IN LOW POSITION. NO S/S OF DISTRESS NOTED. CALL LIGHT IN REACH. WILL CTM.
--- NOTE | 2018-07-04 03:09 | NUR ---
TELEMETRY SHOWED 44 SINUS MICHAEL ON TELEMETRY, AFTER CONSULTING CHARGE NURSE ITZ BANKS RN, TURNED OFF IV CARDIZEM. WILL CONTINUE TO MONITOR.
--- NOTE | 2018-07-04 03:25 | NUR ---
NOTIFIED DR CALLE THE CARDIZEM IV HAS BEEN STOPPED RELATING TO PT HEART RATE IN 40S.
[2018-07-04 04:00] VITALS: BP 99/46
--- NOTE | 2018-07-04 05:20 | NUR ---
RESTING WITH NO DISTRESS. MONITOR AND CPOC.
[2018-07-04 06:23] LABS: BASOPHILS 0.2 % (0-2); EOSINOPHILS 3.4 % (0-7); HEMATOCRIT 37.8 % (42.0-54.0); HEMOGLOBIN 12.9 g/dL (13.5-17.5); IMMATURE GRANULOCYTES 0.2 % (0-5); LYMPHOCYTES 18.9 % (15-50); MCH 30.1 pg (26.0-34.0); MCHC 34.1 g/dL (31.0-37.0); MCV 88.3 fL (80.0-100.0); MEAN PLATELET VOLUME 12.1 fL (7.4-10.4); NEUTROPHILS 67.3 % (40-80); PLATELET COUNT 189 10x3/uL (130-400); RBC 4.28 10x6/uL (4.20-6.10); RDW 13.2 % (11.5-14.5); WBC 8.9 10x3/uL (4.8-10.8)
[2018-07-04 07:08] LABS: ALBUMIN 3.5 g/dL (3.4-5.0); ANION GAP 15.1 mmol/L (8-16); BILIRUBIN - TOTAL 0.75 mg/dL (0.2-1.3); CALCIUM 8.5 mg/dL (8.5-10.1); CARBON DIOXIDE 25.4 mmol/L (21.0-32.0); CREATININE - SERUM 1.1 mg/dL (0.6-1.3); MAGNESIUM - SERUM 2.2 mg/dL (1.8-2.4); POTASSIUM - SERUM 3.5 mmol/L (3.5-5.1); PROTEIN - SERUM 6.9 g/dL (6.4-8.2)
[2018-07-04 07:45] VITALS: BP 121/78
--- NOTE | 2018-07-04 09:00 | NUR ---
TO PREP PERSON PER BED
--- NOTE | 2018-07-04 11:05 | NUR ---
ASSESSMENT DONE. DENIES NEEDS.
[2018-07-04 11:28] VITALS: BP 122/72
--- NOTE | 2018-07-04 11:57 | NUR ---
RESTS WITH EYES CLOSED. VS WNL. RESP UL ON -PAP. WILL CONT. PLAN OF CARE.
[2018-07-04 15:43] VITALS: BP 128/72
--- NOTE | 2018-07-04 17:15 | NUR ---
WITHOUT CHANGES OR DISTRESS NOTED AT THIS TIME. DENIES NEEDS.
--- NOTE | 2018-07-04 19:29 | NUR ---
ASSESSMENT COMPLETE, PT A&O. RESPERATIONS EVEN AND UNLABORED, PTS HOME C PAP IN USE. IV TO LEFT AC AND LEFT HAND SL, SITES CLEAN AND DRY. DRSG TO RIGHT GROIN FROM CARDIAC CATH C/D/I. NO SWELLING, BLEEDING OR HEMATOMA NOTED. PEDAL PULSES PRESENT. PT DENIES PAIN OR NEEDS. BED LOW, CL IN REACH.
[2018-07-04 20:00] VITALS: BP 126/68
[2018-07-05] VITALS: BP 106/50
[2018-07-05 00:02] VITALS: BP 83/56
[2018-07-05 04:00] VITALS: BP 104/54
--- NOTE | 2018-07-05 04:13 | NUR ---
PEARL GLUE DRIER AT BED SIDE TO OBTAIN VITALS.
[2018-07-05 06:23] LABS: BASOPHILS 0.6 % (0-2); EOSINOPHILS 3.1 % (0-7); HEMATOCRIT 39.3 % (42.0-54.0); HEMOGLOBIN 13.1 g/dL (13.5-17.5); IMMATURE GRANULOCYTES 0.1 % (0-5); LYMPHOCYTES 20.5 % (15-50); MCH 29.8 pg (26.0-34.0); MCHC 33.3 g/dL (31.0-37.0); MCV 89.5 fL (80.0-100.0); MEAN PLATELET VOLUME 12.5 fL (7.4-10.4); MONOCYTES 12.2 % (2-11); NEUTROPHILS 63.5 % (40-80); PLATELET COUNT 189 10x3/uL (130-400); RBC 4.39 10x6/uL (4.20-6.10); RDW 13.2 % (11.5-14.5); WBC 7.2 10x3/uL (4.8-10.8)
[2018-07-05 06:47] LABS: ALBUMIN 3.3 g/dL (3.4-5.0); ANION GAP 14.2 mmol/L (8-16); BILIRUBIN - TOTAL 0.64 mg/dL (0.2-1.3); CALCIUM 8.3 mg/dL (8.5-10.1); CARBON DIOXIDE 24.6 mmol/L (21.0-32.0); CREATININE - SERUM 1.2 mg/dL (0.6-1.3); MAGNESIUM - SERUM 2.1 mg/dL (1.8-2.4); POTASSIUM - SERUM 3.8 mmol/L (3.5-5.1); PROTEIN - SERUM 6.6 g/dL (6.4-8.2)
--- NOTE | 2018-07-05 07:50 | NUR ---
ASSESSMENT DONE. DENIES NEEDS
[2018-07-05 08:00] VITALS: BP 122/73
--- NOTE | 2018-07-05 09:35 | NUR ---
FELIPA NEEDS OR C/O AT THIS TIME. CALL LIGHT IN REACH. WILL MONITOR.
[2018-07-05] MEDS ORDERED: CARDIZEM60 MG PO (11:30)
[2018-07-05 12:06] VITALS: BP 130/55
[2018-07-05] MEDS ORDERED: COZAAR25 MG PO (13:10)
--- NOTE | 2018-07-05 13:36 | NUR ---
DC AND RX GIVEN TO PT AND
--- NOTE | 2018-07-05 13:49 | NUR ---
DC HOME PER PERSONAL CAR
--- NOTE | 2018-07-05 15:03 | MORECARE ---
CASE MANAGEMENT DISCHARGE SUMMARY PATIENT: ADRIAN OLIVAREZ UNIT: [id number] ADM DATE: 07/02/18 AGE: 63 : 57 SEX: M ROOM/BED: D.2532 AUTHOR: BETHANYDOC PHYSICIAN: REFERRING PHYSICIAN: PAUL COLÓN DO DATE OF SERVICE: 07/05/18 Discharge Plan Patient Name: ADRIAN OLIVAREZ Facility: [facility]:[place] : 1955 Planned Disposition: Home Anticipated Discharge Date: 07/05/18 Discharge Date: 07/05/2018 Expected LOS: 3 Initial Reviewer: [email or web address] Initial Review Date: 07/01/2018 Generated: 07/05/18 4:03 pm Comments DCP- Discharge Planning Updated by [email or web address]: Sebastian Nicole on 07/05/18 2:[address] Patient Name: ADRIAN OLIVAREZ Admission Status: ER Accout number: [id number] Admission Date: 07-02-2018 : 1955 Admission Diagnosis:PALPITATIONS Attending: PAUL COLÓN Current LOS: 3 Anticipated DC Date: 07-05-2018 Planned Disposition: Home Primary Insurance: [employer] Discharge Planning Comments: CM MET WITH PT AND SPOUSE IN ROOM TO DISCUSS DISCHARGE PLANNING AND NEEDS. ADRIAN OLIVRAEZ provided verbal consent to discuss current and ongoing needs with/in the presence of: SPOUSE, TARIQ OLIVAREZ. PT REPORTS LIVING AT HOME INDEPENDENTLY WITH SPOUSE. PT HAS CPAP FROM [facility]. PT HAS NO OUTSIDE SERVICES ASSISTING IN THE HOME. CM DISCUSSED AVAILABILITY OF HOME HEALTH, REHAB SERVICES AND MEDICAL EQUIPMENT. PT DENIES DISCHARGE NEEDS, REPORTS HIS WILL PICK HIM UP FOR DISCHARGE HOME. [employer]HOLE BORER NURSE NOTIFIED. Digital Account Coordinator: Sebastian Nicole DCPIA - Discharge Planning Initial Assessment Updated by [email or web address]: Sebastian Nicole on 07/05/18 3:00 pm * Is the patient Alert and Oriented? Yes * How many steps to enter\exit or inside your home? NONE * PCP DR DELANEY * Pharmacy [facility] * Preadmission Environment Home with Family * ADLs Independent * Equipment CPAP * Other Equipment [facility] - MEDICAL EQUIPMENT PROVIDER * List name and contact numbers for known caregivers / representatives who currently or will assist patient after discharge: TARIQ OLIVAREZ, SPOUSE, * Verbal permission to speak to the caregivers and representatives has been obtained from the patient. Yes * Community resources currently utilized None * Please name any agencies selected above. NONE * Additional services required to return to the preadmission environment? No * Can the patient safely return to the preadmission environment? Yes * Has this patient been hospitalized within the prior 30 days at any hospital? No Last DP export: 07/02/18 3:56 p Patient Name: ADRIAN OLIVAREZ Page [id number] Electronically Signed by [facility] [place] on 07/05/18 at 1503 All edits/amendments must be made on the electronic document DICTATION DATE: 07/05/18 150 GAUGE MAKER APPRENTICE: TRUDI 07/05/18 1502 RPT#: [id number] DC DATE:07/05/18 STATUS: DIS IN [facility] [address] [place] [address] END OF REPORT
== END 2018-07-05 13:50 | disposition home or self-care (01) | DRG 247 ==
LOC: D.ER 17:48 → OBSVTIME 19:27 → D.M2 19:27
PROVIDERS: Family Medicine; Internal Medicine Cardiovascular Disease; ADMIT Family Medicine
PROC: B2111ZZ Fluoroscopy of Multiple Coronary Arteries using Low Osmolar Contrast (ICD-10-PCS; 2018-07-04)
PROC: B2151ZZ Fluoroscopy of Left Heart using Low Osmolar Contrast (ICD-10-PCS; 2018-07-04)
PROC: 027034Z Dilation of Coronary Artery, One Artery with Drug-eluting Intraluminal Device, Percutaneous Approach (ICD-10-PCS; principal; 2018-07-04 09:30)
PROC: 4A023N7 Measurement of Cardiac Sampling and Pressure, Left Heart, Percutaneous Approach (ICD-10-PCS; 2018-07-04 09:30)
DX: I25.10 Atherosclerotic heart disease of native coronary artery without angina pectoris (principal); N17.9 Acute kidney failure, unspecified; I48.0 Paroxysmal atrial fibrillation; I10 Essential (primary) hypertension; E78.5 Hyperlipidemia, unspecified; E11.65 Type 2 diabetes mellitus with hyperglycemia; G47.33 Obstructive sleep apnea (adult) (pediatric); E03.9 Hypothyroidism, unspecified

== ENCOUNTER 2018-08-04 10:51 | Outpatient (CLI) | payer BC ==
[~2018-08-04] VITALS: Ht 177.8 cm; Wt 81.8 kg
--- NOTE | ~2018-08-04 | HEMODYNAMI ---
PATIENT:ADRIAN OLIVAREZ MEDICAL RECORD: [id number] : 57 LOCATION:DDAVE ADMISSION DATE: 08/04/18 Generatedon:08/04/201813:48 Patient name: ADRIAN OLIVAREZ Patient #: [id number] SSN: [id number] : 1955 Date of study: 08/04/2018 Page: Of Hemodynamic Procedure Report Patient Data Patient Demographics Procedure consent was obtained First Name: ADRIAN Gender: Male Last Name: SHER : 1955 [facility] Initial: YAEL Age: 63 year(s) Patient #: [id number] Race: SSN: [id number] Additional ID: [id number] Contact details Address: [address] [place] [address] circle State: [place] City: [facility] Zip code: [address] Past Medical History Allergies Allergen Reaction Date Comments Reported Other allergy 08/31/2016 LENNY inhibitors, Doxycyclines, Avandia Other allergy 07/04/2018 LENNY Inhibitors, doxycycline, Rosiglitazone, LENNY inhibitors 08/04/2018 Other allergy 08/04/2018 doxycycline, avandia Admission Admission Data Admission Date: 08/04/2018 Admission Time: 10:51 Procedure Procedure Types Cath Procedure Diagnostic Procedure PPM/ICD PPM Dual Implant Sedation Charges Moderate Sedation up to 15 minutes Procedure Description Procedure Date Procedure Date: 08/04/2018 Procedure Start Time: 13:13 Procedure Staff Name Function Inocencio Joe MD Performing Physician Imer Rivera MD Assisting physician Leigh Ann Hopper RT Monitor Juancho Mitchell RN Nurse Rambo Reardon RT Scrub Procedure Data Cath Procedure Fluoroscopy Diagnostic fluoroscopy Total fluoroscopy Time: 1.6 time: 1.6 min min Diagnostic fluoroscopy Total fluoroscopy dose: 39 dose: 39 mGy mGy Estimated blood loss: 5 ml Procedure Complications No complications Procedure Medications Medication Administration Route Dosage Oxygen etCO2 Nasal cannula 2 l/min Lidocaine 2% added to field 20 Ancef (1Gm/50ml NS) I.V.P.B 1 g Ancef Irrigation Topical 1 g (1gm/500ml NS) Versed I.V. 2 mg Fentanyl I.V. 100 mcg Versed I.V. 1 mg Fentanyl I.V. 50 mcg Versed I.V. 1 mg Fentanyl I.V. 50 mcg Hemodynamics Rest Heart Rate: 48 (bpm) Snapshots Pre Cath Intra NCS Post Cath Vital Signs Time Heart Resp SPO2 etCO2 NIBP (mmHg) Rhythm Pain Sedation Rate (ipm) (%) (mmHg) Status Level (bpm) 13:01:19 57 17 99 0 209/102(119) NSR 0 (11) 10(A) , No pain 13:05:57 47 12 96 0.7 195/94(157) NSR 0 (11) 10(A) , No pain 13:10:36 46 13 96 0.7 206/95(167) NSR 0 (11) 10(A) , No pain 13:15:20 46 10 96 0.7 209/93(114) NSR 0 (11) 9(A) , No pain 13:20:01 50 11 93 0.7 179/94(140) NSR 0 (11) 9(A) , No pain 13:24:33 46 12 95 0.7 170/106(122) NSR 0 (11) 9(A) , No pain 13:29:06 106 12 96 0.7 164/116(138) NSR 0 (11) 9(A) , No pain 13:33:34 102 11 96 0 161/122(158) NSR 0 (11) 10(A) , No pain 13:46:16 80 12 96 0 145/115(128) NSR 0 (11) 10(A) , No pain Medications Time Medication Route Dose Verified Delivered Reason Notes Effecti veness by by 13:05:18 Oxygen etCO2 2 Imer Dawkins used for Nasal l/min Miguel Mitchell RN procedure cannula 13:05:24 Lidocaine added 20ml Iemr Willams for local 2% to vial Miguel Rivera MD anesthetic field 13:05:34 Ancef I.V.P.B 1 g Imer Dawkins used for (1Gm/50ml Miguel Mitchell RN procedure NS) 13:05:42 Ancef Topical 1 g Imer Willams used for Irrigation Miguel Rivera MD procedure (1gm/500ml NS) 13:10:23 Versed I.V. 2 mg Imer Ugarteie for Miguel Mitchell RN sedation 13:10:29 Fentanyl I.V. 100 [facility] Miguel Mitchell RN sedation 13:21:35 Versed I.V. 1 mg Imer Ugarteie for Miguel Mitchell RN sedation 13:21:40 Fentanyl I.V. 50 Imer Ugarteie for ann Mitchell RN sedation 13:25:53 Versed I.V. 1 mg Imer Ugarteie for Miguel Mitchell RN sedation 13:25:57 Fentanyl I.V. 50 [facility] Migule Mitchell RN sedation Procedure Log Time Note 12:33:06 Juancho Mitchell RN sent for patient. Start room use. 12:33:07 Time tracking: Regular hours (M-F 7:00 - 5:00) 12:33:12 Plan of Care:Hemodynamics will remain stable., Cardiac rhythm will remain stable., Comfort level will be maintained., Respiratory function will remain adequate., Patient/ family verbilizes understanding of procedure., Procedure tolerated without complication., Recovers from procedure without complications.. 12:48:16 Patient received from Pre/Post Procedure Room to [facility] 3 Alert and oriented. Tansferred to table in Supine position. 12:48:17 Warm blankets applied, and patricia hugger turned on for patient comfort. 12:48:17 Correct patient and procedure confirmed by team. 12:48:19 Signed procedure consent form obtained from patient. 12:48:19 ECG and BP/O2 sat monitors applied to patient. 12:48:20 Full Disclosure recording started 12:58:34 Vital chart was started 12:58:40 Rhythm: sinus bradycardia 12:58:51 H&P Date Dictated: 07/27/2018 Within 30 days and on chart., H&P Addendum completed by physician on day of procedure. (MUST COMPLETE FOR ALL OUTPATIENTS). 12:58:52 Pre-procedure instructions explained to patient. 12:58:53 Pre-op teaching completed and patient verbalized understanding. 12:58:55 Family in patients room. 12:58:57 Patient NPO since Midnight. 12:59:04 Patient allergic to LENNY inhibitors 12:59:26 Patient allergic to Other allergydoxycycline, avandia 12:59:29 Is the patient allergic to Iodine/contrast media? No. 12:59:32 Is patient on blood thinner?No 13:00:24 Patient diabetic? Yes. 13:00:26 Previous problem with sedation/anesthesia? No ? 13:00:27 Snore? Yes 13:00:28 Sleep apnea? Yes 13:00:29 Deviated septum? No 13:00:30 Opens mouth fully? Yes 13:00:30 Sticks out tongue? Yes 13:00:33 Airway obstruction? No ? 13:00:35 Dentures? No ? 13:01:26 If diabetic: On Metformin? Yes 13:01:28 If on Metformin: Last Dose? 08/02/2018 13:01:39 Patient pain scale 0/10 ?. 13:01:48 IV patent on arrival in left forearm with 0.9% NaCl at [facility]. 13:01:50 Lab results completed and on chart. 13:01:56 Left chest area was prepped with chlora-prep and draped in sterile fashion 13:01:57 Alarms reviewed by R. N. 13:01:57 Sharps counted by scrub and verified by R.N. 13:02:04 Use device set MIGUEL PPM 13:02:06 2-0 Ticron Multipack ([id number]) opened to sterile field. 13:02:06 3-0 Vicryl Single Pack [id number] opened to sterile field. 13:02:07 5-0 Monocryl PS2 [id number] opened to sterile field. 13:02:07 Cautery Tip Supervisor Coil Winding opened to sterile field. 13:02:07 Cautery Pushbutton Pencil opened to sterile field. 13:02:08 Mepilex Dressing ([id number]) opened to sterile field. 13:02:16 Medtronic small business representative ARVIND MEEKSOE present for procedure. 13:02:27 Pre sharps counted by scrub and verified by RN: Sutures: 7; Sponges: 5; Stick needles: 2; Skin needles: 2; Blade: 1; Cautery: 1 13:02:30 Grounding pad site Left thigh. 13:02:31 Grounding pad site free from injury. 13:04:48 Baseline sample Acquired. 13:05:07 MedSimpleTuition Advisa MRI PPM Dual Generator [id number] opened to sterile field. 13:05:18 Oxygen 2 l/min etCO2 Nasal cannula was administered by Juancho Mitchell RN; used for procedure; 13:05:18 Medtronic 4574-45 PPM Lead opened to sterile field. 13::24 Lidocaine 2% 20ml vial added to field was administered by Imer Rivera MD; for local anesthetic; 13:05:24 Medtronic 4074-52 PPM Lead opened to sterile field. 13:05:34 Ancef (1Gm/50ml NS) 1 g I.V.P.B was administered by Juancho Mitchell RN; used for procedure; 13:05:42 Ancef Irrigation (1gm/500ml NS) 1 g Topical was administered by Imer Rivera MD; used for procedure; 13:08:41 DR RIVERA SCRUBBED IN. 13::29 Final Timeout: patient, procedure, and site verified with staff and physician. All members of the team are in agreement. 13:09:33 Left chest site verified by team. 13:09:44 Fire Safety Assessment: A--An alcohol-based skin anteseptic being used preoperatively., B--The operative or invasive procedure is being performed above the xiphoid process or in the oropharynx., C--Open oxygen or nitrous oxide is being used., D--An ESU, laser, or fiber-optic light is being used., E--There are other possible contributors. 13:09:48 Physical assessment completed. ASA score P 2 - A patient with mild systemic disease as per Inocencio Joe MD. 13:09:51 Sedation plan: IV Moderate Sedation Medication:Versed, Fentanyl 13::23 Versed 2 mg I.V. was administered by Juancho Mitchell RN; for sedation; ::29 Fentanyl 100 mcg I.V. was administered by Juancho Mitchell RN; for sedation; 13:13:49 Lidocaine 1% was administered to left subclavicular area by Imer Rivera MD . 13:16:00 Incision made to left subclavicular area. 13:18:31 Generator pocket made/opened. 13:19:24 DR JOE SCRUBBED IN 13:20:16 Left subclavian vein accessed with 7Fr Peel Away Sheath. 13:20:23 Left subclavian vein accessed with 7Fr Peel Away Sheath. 13:20:28 Ventricular lead inserted and advanced. 13:20:30 Atrial lead inserted and advanced. 13:21:35 Versed 1 mg I.V. was administered by Juancho Mitchell RN; for sedation; 13::40 Fentanyl 50 mcg I.V. was administered by Juancho Mitchell RN; for sedation; 13:25:00 Ventricular lead positioned. 13:25:03 Atrial lead positioned. 13:25:53 Versed 1 mg I.V. was administered by Juancho Mitchell RN; for sedation; 13:25:57 Fentanyl 50 mcg I.V. was administered by Juancho Mitchell RN; for sedation; 13:26:41 Ventricular lead tested. 13:26:43 Atrial lead tested. 13::47 Peel-a-way sheath was split and removed. 13::48 Peel-a-way sheath was split and removed. 13:27:09 Atrial lead attachment was completed with 2-0 ticron. 13:27:15 Ventricular lead attachment was completed with 2-0 ticron. 13:29:14 PPM Dual was attached to lead(s) and inserted into pocket. 13:30:55 Generator was sutured in place with 2-0 ticron. 13:31:04 Device pocket was irrigated with Ancef. 13:31:34 Subcutaneous closure was completed with 3-0 vicryl. 13:33:36 Parameters-- Generator: Mode: AVIR<=>DDDR. Lower Rate: 60bpm. Upper Rate: 130bpm. 13:33:56 Parameters--Ventricular P/R Wave: 19.2mV. Current: 0.2mA; Threshold: 0.3V; Impedence: 1251OHMS. 13:34:26 Parameters--Atrial P/R Wave: 0.7mV. Current: N/AmA; Threshold: N/AV; Impedence: 757OHMS. 13:34:34 Skin closure was completed with 5-0 monocryl. 13:34:37 Lt Chest incision was dressed with Mepilex dressing. 13:34:52 Post sharps counted by scrub and verified by RN: Sutures: 7; Sponges: 5; Stick needles: 2; Skin needles: 2; Blade: 1; Cautery: 1 13:35:24 Procedure ended.(Physican Out) 13:35:37 Fluoroscopy time 01.60 minutes. 13:35:41 Fluoroscopy dose: 39 mGy 13:35:41 Flurop Dose total: 39 13:35:44 Sharps counted by scrub and verified by R.N. 13:35:45 Insertion/operative site no bleeding no hematoma. 13:35:55 Post Chest area:oozing 13:36:01 Post Procedure Pulses reassessed and unchanged 13:37:02 PRESSURE DRESSING APPIED TO LEFT CHEST INCISION DUE TO BLEEDING. 13:37:34 Post procedure rhythm: paced 13:37:37 Estimated blood loss: 5 ml 13:37:38 Post procedure instruction explained to patient.Patient verbalizes understanding. 13:37:39 Patient needs reinforcement of post procedure teaching. 13:38:25 Procedure type changed to Cath procedure, Diagnostic procedure, PPM/ICD, PPM Dual Implant, Sedation Charges, Moderate Sedation up to 15 minutes 13:38:30 Procedure Complication : No complications 13:38:32 See physician's report for complete and final results. 13:39:27 Immobilizer Extra Large opened to sterile field. 13:40:14 Procedure and supply charges have been captured, reviewed, submitted and are correct. 13:40:15 Vital chart was stopped 13:40:24 Report given to PCU. 13:40:27 Patient transfered to PCU with Bed. 13:40:30 End room use (Document Last) Device Usage Item Name Manufacture Quantity Catalog Hospital Part Current Minimal Lot# / Number Charge Number Stock Stock Serial# Code 2-0 Ticron Ethicon 6 [id number] 5 Multipack ([id number]) 3-0 Vicryl Ethicon 1 [id number] 101390 [id number] 5 Single Pack [id number] 5-0 Monocryl Ethicon 1 [id number] 448926 923789 5 PS2 Y495G Cautery Tip Microtek 1 [id number] [id number] 272441 [id number] 5 Supervisor Coil Winding [employer] Cautery Microtek 1 [id number] 215729 56894 [id number] 5 Pushbutton [employer] Pencil Mepilex Cardinal 1 [id number] 967572 111064 833510 5 [facility] ([id number]) Medtronic Medtronic 1 [id number] 698726 816880 057508 5 [id number] Advisa MRI EXP PPM Dual 01-02-2020 Generator [id number] Medtronic Medtronic 1 4574-45 488780 [id number] 234786 5 [id number] 4574-45 PPM EXP Lead 04-19-2020 Medtronic Medtronic 1 [id number] 419251 236674 436897 5 [id number] 407-52 PPM EXP Lead 02-18-2020 Immobilizer Cardinal 1 [id number] [id number] [id number] 5 Extra Large Health Signature Audit [place] Stage Time Signature Unsigned Intra-Procedure 08/04/2018 Leigh Ann 1:48:03 PM Counts RT(R) Signatures Monitor : Leigh Ann Signature : Counts RT Date : Time : [address] [address]
[~2018-08-04 10:51] MED LIST changes: +CARDIZEM60 MG PO; +COZAAR25 MG PO; +NIFEDIPINE ER90 MG PO; +NOVOLOG INJ FLE SQ; +NOVOLOG100 UNIT/1 SQ
[2018-08-04] MEDS ORDERED: BETAPACE 80 MG80 MG PO (11:10)
[2018-08-04] MEDS ORDERED: BENICAR20 MG PO (11:11)
[2018-08-04 11:25] VITALS: BP 158/89; BMI 25.1
[2018-08-04 11:31] LABS: BASOPHILS 0.6 % (0-2); EOSINOPHILS 3.7 % (0-7); HEMATOCRIT 42.6 % (42.0-54.0); HEMOGLOBIN 14.5 g/dL (13.5-17.5); IMMATURE GRANULOCYTES 0.1 % (0-5); LYMPHOCYTES 27.7 % (15-50); MCH 29.2 pg (26.0-34.0); MCV 85.9 fL (80.0-100.0); MEAN PLATELET VOLUME 12.5 fL (7.4-10.4); MONOCYTES 9.6 % (2-11); NEUTROPHILS 58.3 % (40-80); PLATELET COUNT 171 10x3/uL (130-400); RBC 4.96 10x6/uL (4.20-6.10); RDW 12.7 % (11.5-14.5); WBC 7.3 10x3/uL (4.8-10.8)
[2018-08-04 11:44] LABS: CALC OSMOLALITY 283 mosm/kg (275-300); CALCIUM 9.5 mg/dL (8.5-10.1); CARBON DIOXIDE 29.3 mmol/L (21.0-32.0); CHLORIDE - SERUM 102 mmol/L (98-107); GLUCOSE 126 mg/dL (74-106); POTASSIUM - SERUM 3.7 mmol/L (3.5-5.1); SODIUM 141 mmol/L (136-145); UREA NITROGEN 15 mg/dL (7-18); eGFR NON AFRICAN AMERICAN 80 mL/min (90-120)
[2018-08-04 11:46] LABS: INR 1.02 (0.85-1.17); PROTIME 12.9 SECONDS (11.6-15.0)
--- NOTE | 2018-08-04 14:26 | NUR ---
TRANSFER FROM [facility]MI[employer] SERVICE REPRESENTATIVE BY BED. LEFT CHEST PRESSURE DRSG CDI. LEFT ARM IN SLING. AT BS. CALL LIGHT IN REACH. WILL CONT. PLAN OF CARE.
[2018-08-04 14:28] VITALS: BP 122/102; Ht 177.8 cm; Wt 81.8 kg
--- NOTE | 2018-08-04 16:47 | NUR ---
ZOFRAN GIVEN FOR C/O NAUSEA. PRESSURE DRSG REMOVED. MEPILEX INTACT. SOME BRUICING NOTED TO SITE.
[2018-08-04 17:51] VITALS: BP 142/65
--- NOTE | 2018-08-04 18:33 | NUR ---
TELEMETRY PACED AT 60.
--- NOTE | 2018-08-04 19:44 | NUR ---
RESUMED CARE OF PT, LYING IN BED RESPIRATIONS EVEN AND UNLABORED ON ROOM AIR. LEFT ARM SALINE LOCKED, LEFT ARM SLING. 67 CAF ON TELEMETRY. CALL LIGHT IN REACH. SEE NURSE ASSESSMENT.
[2018-08-04 20:23] VITALS: BP 135/77
[2018-08-05 01:05] VITALS: BP 124/65
[2018-08-05 05:36] VITALS: BP 132/69
--- NOTE | 2018-08-05 07:30 | NUR ---
AQSSESSMENT COMPLETED. TELEMERTY SHOWS PACED RHYTHM. SOME BLEEDING TO PACER SITE. PRESSURE APPLIED WITH SAND BAG. DR NOTIFIED. ORDERS RECIEFED. SR UP WITH CALL LIGHT IN REACH
[2018-08-05 08:06] VITALS: BP 136/81
--- NOTE | 2018-08-05 09:01 | OP ---
PATIENT NAME: ADRIAN OLIVAREZ MEDICAL RECORD: [id number] :57 LOCATION:D.M2 D.2119 ADMISSION DATE: SURGEON: IMER RIVERA MD DATE OF OPERATION: 08/04/2018 PREOPERATIVE DIAGNOSES: 1. Sick sinus syndrome. 2. Atrial fibrillation. 3. Hypertension. POSTOPERATIVE DIAGNOSES: 1. Sick sinus syndrome. 2. Atrial fibrillation. 3. Hypertension. PROCEDURE: Left subclavian vein dual lead pacemaker placement. SURGEON: Imer Rivera MD CO-SURGEON: Inocencio Odom MD REPORT OF OPERATION: The patient's left chest was prepped and draped in sterile fashion. A 20 mL of 1% lidocaine with epinephrine was infused into the surrounding tissues. A skin incision was made over the left superolateral chest and a subcutaneous pouch was made over the pectoral fascia. We accessed the left subclavian vein times 2 and guidewires were advanced with ease. Fluoro was used to note that the wires were in good position in the venous system. The dilator and trocar devices were placed over the wires and the wires and dilators were removed. The leads were advanced through the trocars, and at this point, Dr. Odom positioned the leads appropriately in the atrium and ventricle. Once the leads were noted to be functioning appropriately, then these were sutured into place with #0 Ti-Crons. These were then affixed to the pacemaker, which was placed into the subcutaneous pouch. We then sutured this down to the pectoral fascia using an interrupted #0 Ti-Cron. The wound was irrigated out with antibiotic solution. The subcutaneous tissues were reapproximated with interrupted 3-0 Vicryl and the skin was closed with running subcutaneous 5-0 Monocryl. COMPLICATIONS: None. CONDITION: Stable. ANESTHESIA: Local MAC. BLOOD LOSS: 30 mL. TRANSINT:[id number] Voice Confirmation ID: [id number] DOCUMENT ID: [id number] OPERATIVE REPORT [id number] SHERADRIAN IMER RODRIGUEZ MD at 0901 CC: [id number] DICTATION DATE: 08/04/18 1340 VEGETABLE PACKER: 08/04/18 1429 [id number] [place] [id number]
[2018-08-05 11:45] VITALS: BP 129/78
--- NOTE | 2018-08-05 15:52 | NUR ---
I have reviewed this patient and I concur with the Shift Assessment completed by the Licensed Practical Nurse today this shift.
[2018-08-05 15:56] VITALS: BP 131/76
--- NOTE | 2018-08-05 16:30 | NUR ---
DR RIVERA HERE. PRESSURE DRSG APPLIED TO PACER SITE. IV DCD WITH TIP INTACT. NO NEEDS VOICED. SLING TO LEFT ARM
--- NOTE | 2018-08-05 17:18 | NUR ---
TO PRIVATE CAR PER WHEELCHAIR.
--- NOTE | 2018-08-06 10:16 | OP ---
PATIENT NAME: ADRIAN BRADLEY MEDICAL RECORD: [id number] :57 LOCATION:D.CAT ADMISSION DATE: SURGEON: TOMASZ GOMES MD DATE OF OPERATION: 08/04/2018 PROCEDURE: Permanent pacemaker. INDICATION: Sick sinus syndrome with jonh escape rhythms. SURGEON: Imer Mckeon MD DESCRIPTION OF PROCEDURE: After the left subclavian was cannulated via modified Seldinger technique via Dr. Mckeon, first, under fluoroscopic guidance, I placed the RV lead in the RV apex without difficulty. Next, after adequate R waves and thresholds were obtained, again under fluoroscopic guidance, I then placed the right atrial lead in the right atrial appendage without difficulty. After P waves and thresholds were obtained, the leads were attached to the appropriate poles of the generator. Pocket was closed via Dr. Mckeon. IMPRESSION: Successful lead portion of permanent pacemaker on Adrian Bradley. ESTIMATED BLOOD LOSS: Minimal. DISPOSITION: To the floor, stable. TRANSINT:[id number] Voice Confirmation ID: [id number] DOCUMENT ID: [id number] TOMASZ GOMES MD at 1016 CC: [id number] DICTATION DATE: 08/04/18 1331 [place] REPAIRER: 08/04/18 1426 DEP CLI 08/05/[address] [address]
== END 2018-08-05 17:20 | disposition home or self-care (01) ==
LOC: D.CATH 10:51 → D.M2 14:17 → D.CATH 08-05 17:20
PROVIDERS: ATTEND Internal Medicine Interventional Cardiology
DX: I49.5 Sick sinus syndrome (principal); I10 Essential (primary) hypertension; Z01.812 Encounter for preprocedural laboratory examination; Z79.02 Long term (current) use of antithrombotics/antiplatelets

== ENCOUNTER → 2018-09-05 13:43 | Outpatient (CLI) | payer BC ==
[2018-08-04 14:28] VITALS: BMI 25.8
--- NOTE | ~2018-09-05 | EC ---
PATIENT:ADRIAN OLIVAREZ DATE OF SERVICE: 09/05/18 SEX: M MEDICAL RECORD: [id number] DATE OF : [birth year] [facility] AGE OF PATIENT: 63 ADMISSION DATE: 09/05/18 REFERRING PHYSICIAN: INTERPRETING PHYSICIAN: GLORIA ABREU MD ECHOCARDIOGRAM REPORT ECHO CHARGES 4 ECHO COMPLETE Date: 09/05/18 CLINICAL DIAGNOSIS: AFIB HX RECNET PACER,CAD STENTS,HTN ECHOCARDIOGRAPHIC MEASUREMENTS (adult normal given) AC root (d.<3.7cm) 2.6 cm LV Septum d (<1.2 cm> 1.4 cm Valve Excursion 1.1 cm LV Septum (systole) 1.6 cm Left Atria (s.<4.0cm> 3.6 cm LVPW d(<1.2cm) 1.5 cm RV (d.<2.3cm) 4.3 cm LVPW (sytole) 1.6 cm LV diastole(<5.6CM) 4.5 cm MV E-F(>70mm/sec) cm LV systole 3.1 cm LVOT Diameter 1.6 cm MV exc.(>10mm) 1.5 cm Est.ejection fraction (50-75%) % DOPPLER: LVIT cm/sec A 110 cm/sec E 87.0 cm/sec LA cm/sec RVSP 30 mmHg LVOT 135 cm/sec AOP1/2T m/s Asc. Ao 168 cm/sec RVOT 75 cm/sec RA cm/sec PA 130 cm/sec AV Gradient Peak [id number] AV Mean 6.73 mmHg AV Area 1.4 cm MV Gradient Peak 5.80 mmHg MV Mean 2.09 mmHg MV Area cm COMMENTS: Electric Distribution Checker: Teagan SUNSH[employer] Sausage Linker: Lanre Abreu TAPE# PACS Pericardial Effusion N DATE OF SERVICE: 09/05/2018 FINDINGS: 1. Left ventricular chamber size is within normal limits. Left ventricular systolic function is normal. Overall ejection fraction is estimated at 60%. 2. Left atrium is within normal limits at 3.6 cm. Right atrium and right ventricular chamber sizes are mildly dilated. 3. Valvular structures have normal structure and motion. 4. Doppler interrogation reveals trace mitral regurgitation and mild tricuspid regurgitation. No other valvular insufficiency or stenosis. Pulmonary systolic ECHOCARDIOGRAM REPORT [id number] ADRIAN OLIVAREZ pressure is estimated at 30 mmHg. 5. No evidence of pericardial effusion or left ventricular thrombus. TRANSINT:[id number] Voice Confirmation ID: [id number] DOCUMENT ID: [id number] GLORIA ABREU MD CC: [id number] DICTATION DATE: 09/05/18 160 BUSINESS OFFICE SPECIALIST: 09/05/18 1824 REG [facility] [address] [id number]
[~2018-09-05 13:43] MED LIST changes: +BENICAR20 MG PO; +BETAPACE 80 MG80 MG PO
== END | disposition home or self-care (01) ==
LOC: D.HCCARDIO 13:43
PROVIDERS: ATTEND Internal Medicine Interventional Cardiology
DX: I48.91 Unspecified atrial fibrillation (principal)

== ENCOUNTER 2020-10-07 11:22 | Day surgery (SDC) | payer BC ==
[2018-08-04 14:28] VITALS: BMI 25.8
[2020-10-07] MEDS ORDERED: GAVILAX510 GM PO (12:04)
[2020-10-07] MEDS ORDERED: PREVACID30 MG PO (12:04)
[2020-10-07] MEDS ORDERED: LIPITOR10 MG PO (12:06)
[2020-10-07] MEDS ORDERED: HCTZ25 MG PO (12:06)
[2020-10-07] MEDS ORDERED: BETAPACE240 MG PO (12:08)
[2020-10-07] MEDS ORDERED: FLUTICASONE PRO16 GM NASAL (12:09)
[2020-10-07] MEDS ORDERED: CARTIA XT300 MG PO (12:10)
[2020-10-07] MEDS ORDERED: ELIQUIS5 MG PO (12:10)
[2020-10-07] MEDS ORDERED: NORMODYNE / TR300 MG PO (12:11)
[2020-10-07] MEDS ORDERED: BENICAR40 MG PO (12:13)
--- NOTE | 2020-10-07 13:00 | NUR ---
EKG COMPLETED AT 12:18 TODAY AND ALSO SCANNED PACEMAKER. PT IN SR. A-PACED. DR. CALLE NOTIFIED. WAITING ON HIM TO SEE PT PRIOR TO CANCELLATION OF PROCEDURE.
--- NOTE | 2020-10-07 13:08 | NUR ---
DR. CALLE REVIEWED EKG. PROCEDURE CANCELLED PER DR. GONZALEZ. PT APPT MADE AND GIVEN TO PT. INSTRUCTED TO STAY ON SAME MEDICATIONS AND CALL OFFICE WITH ANY PROBLEMS. HE VOICED UNDERSTANDING.
== END 2020-10-07 13:10 | disposition home or self-care (01) ==
LOC: D.CATH 11:22
PROVIDERS: ATTEND Internal Medicine Cardiovascular Disease
DX: I48.91 Unspecified atrial fibrillation (principal); Z53.9 Procedure and treatment not carried out, unspecified reason